=== PATIENT | female | born 1980 | race Two or more races ===

== ENCOUNTER 2017-12-05 15:27 | Inpatient (IN) ==
[2017-12-05] MEDS ORDERED: HYDROmorphone PF Inj 2 MG/ML Vial IV.PUSH ONE (16:13)
[2017-12-05] MEDS ORDERED: Sodium Chlor 0.9% Inj 500 ML IV.SIG ONE (16:14)
--- NOTE | 2017-12-05 16:17 | ED ---
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 This been present for 2 months secondary to kidney stones. Ostomy tube was placed at [facility] and she was seen here in the ER 2 weeks for the same type of symptoms. States she was DC'd and was to follow-up with urologist, Dr. Lema. Reports fever T-max 102, chills, nausea, abdominal pain, but denies vomiting, vaginal discharge, or diarrhea. Related Data Home Medications Medication Instructions Recorded Confirmed nitrofurantoin monohyd/m-cryst 100 mg PO Q12H 12/05/17 12/05/17 Allergies Allergy/AdvReac Type Severity Reaction Status Date / Time No Known Allergies Allergy Unverified 11/26/17 11:15 Review of Systems ROS: all other systems reviewed are negative [facility] Medical History Medical History Kidney stone (Acute) Surgical History Surgical History H/O breast augmentation (Acute) H/O nephrostomy (Acute) Hx of abdominoplasty (Acute) Previous section (Acute) Social History Social History Substance History: No History of Abuse Second Hand Smoke Exposure: No Smoking Status: Never smoker How Often Do You Have a Drink Containing Alcohol: Monthly or less Recent Travel in [facility] within the Last 8 Weeks: No Recent Out of Country Travel within the Last 8 Weeks: No Exam Narrative Exam Narrative: GENERAL: Discomfort secondary to pain. SKIN: Focused skin assessment warm/dry. HEAD: Atraumatic. Normocephalic. EYES: Pupils equal and round. No scleral icterus. No injection or drainage. ENT: No nasal bleeding or discharge. Mucous membranes pink and moist. NECK: Trachea midline. No JVD. CARDIOVASCULAR: Regular rate and rhythm. No murmur appreciated. RESPIRATORY: No accessory muscle use. Clear to auscultation. Breath sounds equal bilaterally. GASTROINTESTINAL: Abdomen soft, non-tender, nondistended. Hepatic and splenic margins not palpable. L nephrostomy tube, no pus/erythema at insertion site MUSCULOSKELETAL: No obvious deformities. No clubbing. No cyanosis. No edema. NEUROLOGICAL: Awake and alert. No obvious cranial nerve deficits. Motor grossly within normal limits. Normal speech. PSYCHIATRIC: Appropriate mood and affect; insight and judgment normal. Course Initial Documented Vital Signs Temperature 98.8 F 12/05/17 15:35 Pulse Rate 136 H 12/05/17 15:35 Respiratory Rate 20 12/05/17 15:35 Blood Pressure 176/101 H 12/05/17 15:35 Pulse Oximetry 100 12/05/17 15:35 Last Documented Vital Signs Temperature 100.6 F H 12/05/17 19:11 Pulse Rate 120 H 12/05/17 18:31 Respiratory Rate 17 12/05/17 18:31 Blood Pressure 152/91 H 12/05/17 18:31 Pulse Oximetry 100 12/05/17 18:31 Critical Care Time Critical Care Time: Yes Total Critical Care Time: 35 Attestation: Aggregate critical care time was 35 minutes. Time to perform other separately billable procedures was not included in the critical care time. My time did not include minutes spent treating any other patients simultaneously or on activities that did not directly contribute to the patient's treatment. The services I provided to this patient were to treat and/or prevent clinically significant deterioration that could result in: , increased morbidity,renal failure I provided critical care services requiring my management, as noted below: Chart data review, documentation time, medication orders and management, vital sign assessments/reviewing monitor data, ordering and reviewing lab tests, ordering and interpreting/reviewing x-rays and diagnostic studies, care of the patient and discussion of the patient with the admitting physicians. Medical Decision Making MDM Narrative Medical decision making narrative: Patient presents to the emergency department complaining of nephrostomy tube not draining. Patient placed on classroom monitor , continuous pulse ox, IV access obtained. Labs, CT scan abdomen and pelvis, 500 cc IV normal saline, 1 mg IV Dilaudid ordered. nurse flushed nephrostomy tube without difficulty in ER. U/A sent on specimen patient gave in ER. Urine cx results 11/29/17 + E coli ESBL. Will give 1gram IV meropenem. 1800: Dr Weir, Urology: Consult ID for abx coverage, tube in good place nothing to do from that standpoint, f/u with Scaglia, air normal finding with nephrostomy tube CONCLUSION:1. The left nephrostomy tube is in good position. The left renal stone has fallen from the UPJ back into the kidney. No obstructionobserved. There is perinephric stranding and edema involving the left kidney suggesting pyelonephritis.2. Tiny focus of intraluminal air involving the urinary bladder. This can be seen in recent instrumentation but can also be seen in cystitis with gas producing organisms. Labs: elevated wbc count, lactate, UA-> + UTI Patient admitted. Temp increased to 100.6, written for 650mg po tylenol and another liter IV NS. ECG pending at time of admit. Admit MD, Dr Flowers, aware and will followup. Differential Diagnosis Differential Diagnosis: Pyelonephritis, UTI, obstructing kidney stone, renal failure Lab Data Result diagrams: 12/05/17 16:55 12/05/17 16:55 Lab Results 12/05/17 12/05/17 12/05/17 Range/Units 16:55 16:55 16:55 WBC 14.7 H (4.0-11.0) th/mm3 RBC 4.32 (4.00-5.30) mil/mm3 Hgb 12.2 (11.6-15.3) gm/dL Hct 35.6 (35.0-46.0) % MCV 82.3 (80.0-100.0) fL MCH 28.3 (27.0-34.0) pg MCHC 34.3 (32.0-36.0) % RDW 14.6 (11.6-17.2) % Plt Count 417 (150-450) th/mm3 MPV 7.3 (7.0-11.0) fL Neut % (Auto) 84.3 H (16.0-70.0) % Lymph % (Auto) 9.7 (9.0-44.0) % [place] % (Auto) 5.2 (0.0-8.0) % Eos % (Auto) 0.5 (0.0-4.0) % Baso % (Auto) 0.3 (0.0-2.0) % Neut # (Auto) 12.4 H (1.8-7.7) th/mm3 Lymph # (Auto) 1.4 (1.0-4.8) th/mm3 [place] # (Auto) 0.8 (0.0-0.9) th/mm3 Eos # (Auto) 0.1 (0.0-0.4) th/mm3 Baso # (Auto) 0.0 (0.0-0.2) th/mm3 WBC Differential . Differential Comment Auto diff final Sodium 136 (136-145) meq/L Potassium 3.9 (3.5-5.1) meq/L Chloride 102 (98-107) meq/L Carbon Dioxide 26.5 (21.0-32.0) meq/L Anion Gap 8 (5-15) meq/L BUN 12 (7-18) mg/dL Creatinine 0.97 (0.50-1.00) mg/dL Estimated GFR 65 L (>89) mL/min Random Glucose 94 (74-106) mg/dL Lactic Acid 2.2 H (0.4-2.0) mmol/L Calcium 8.7 (8.5-10.1) mg/dL Total Bilirubin 0.4 (0.2-1.0) mg/dL AST 26 (15-37) U/L ALT 35 (10-53) U/L Alkaline Phosphatase 87 (45-117) U/L Total Protein 7.9 (6.4-8.2) g/dL Albumin 3.6 (3.4-5.0) g/dL Urine Color (Yellw/Straw) Urine Clarity (Clear) Urine pH (5.0-8.5) Ur Specific [place] (1.002-1.035) Urine Protein (Neg-Trace) mg/dL Urine Glucose (UA) (Negative) mg/dL Urine Ketones (Negative) mg/dL Urine Occult Blood (Negative) Urine Nitrate (Negative) Urine Bilirubin (Negative) Urine Urobilinogen (Less than 2) mg/dL Ur Leukocyte Esterase (Negative) Urine RBC (0-3) /hpf Urine WBC (0-5) /hpf Urine WBC Clumps (None) Urine Bacteria (None) /hpf Hyaline Casts (0-3) /lpf Urine Mucus (Occasional) /lpf Micro UA Comment Urine Culture Comments 12/05/17 Range/Units 17:01 WBC (4.0-11.0) th/mm3 RBC (4.00-5.30) mil/mm3 Hgb (11.6-15.3) gm/dL Hct (35.0-46.0) % MCV (80.0-100.0) fL MCH (27.0-34.0) pg MCHC (32.0-36.0) % RDW (11.6-17.2) % Plt Count (150-450) th/mm3 MPV (7.0-11.0) fL Neut % (Auto) (16.0-70.0) % Lymph % (Auto) (9.0-44.0) % [place] % (Auto) (0.0-8.0) % Eos % (Auto) (0.0-4.0) % Baso % (Auto) (0.0-2.0) % Neut # (Auto) (1.8-7.7) th/mm3 Lymph # (Auto) (1.0-4.8) th/mm3 [place] # (Auto) (0.0-0.9) th/mm3 Eos # (Auto) (0.0-0.4) th/mm3 Baso # (Auto) (0.0-0.2) th/mm3 WBC Differential Differential Comment Sodium (136-145) meq/L Potassium (3.5-5.1) meq/L Chloride (98-107) meq/L Carbon Dioxide (21.0-32.0) meq/L Anion Gap (5-15) meq/L BUN (7-18) mg/dL Creatinine (0.50-1.00) mg/dL Estimated GFR (>89) mL/min Random Glucose (74-106) mg/dL Lactic Acid (0.4-2.0) mmol/L Calcium (8.5-10.1) mg/dL Total Bilirubin (0.2-1.0) mg/dL AST (15-37) U/L ALT (10-53) U/L Alkaline Phosphatase (45-117) U/L Total Protein (6.4-8.2) g/dL Albumin (3.4-5.0) g/dL Urine Color Yellow (Yellw/Straw) Urine Clarity Cloudy H (Clear) Urine pH 6.0 (5.0-8.5) Ur Specific [place] 1.009 (1.002-1.035) Urine Protein 500 or greater (Neg-Trace) mg/dL Urine Glucose (UA) 50 (Negative) mg/dL Urine Ketones Negative (Negative) mg/dL Urine Occult Blood Moderate H (Negative) Urine Nitrate Positive H (Negative) Urine Bilirubin Negative (Negative) Urine Urobilinogen Less than 2 (Less than 2) mg/dL Ur Leukocyte Esterase Large H (Negative) Urine RBC 62 H (0-3) /hpf Urine WBC 122 H (0-5) /hpf Urine WBC Clumps Moderate H (None) Urine Bacteria Many H (None) /hpf Hyaline Casts 8 (0-3) /lpf Urine Mucus Few H (Occasional) /lpf Micro UA Comment Culture indicated Urine Culture Comments Culture indicated Imaging Data Radiologist's impression: Abdomen/Pelvis CT 12/05/17 16:14 CONCLUSION: 1. The left nephrostomy tube is in good position. The left renal stone has fallen from the UPJ back into the kidney. No obstruction observed. There is perinephric stranding and edema involving the left kidney suggesting pyelonephritis. 2. Tiny focus of intraluminal air involving the urinary bladder. This can be seen in recent instrumentation but can also be seen in cystitis with gas producing organisms. Discharge Plan Discharge Disposition Patient Disposition: 30 Still Patient Discharge Condition Condition: Stable Discharge Details Diagnosis: Sepsis, Pyelonephritis Physicians Team ED Provider: Rhona Kurtz Rxs /Orders / Referrals /Forms Prescriptions: No Action nitrofurantoin monohyd/m-cryst 100 mg Capsule 100 mg PO Q12H RF: 0 Status ED Status: With Doctor
[2017-12-05 17:23] LABS: Baso % (Auto) 0.3 % (0.0-2.0); Eos # (Auto) 0.1 th/mm3 (0.0-0.4); Eos % (Auto) 0.5 % (0.0-4.0); Hematocrit 35.6 % (35.0-46.0); Hemoglobin 12.2 gm/dL (11.6-15.3); Lymph # (Auto) 1.4 th/mm3 (1.0-4.8); Lymph % (Auto) 9.7 % (9.0-44.0); Mean Corpuscular HGB Conc 34.3 % (32.0-36.0); Mean Corpuscular Hemoglobin 28.3 pg (27.0-34.0); Mean Corpuscular Volume 82.3 fL (80.0-100.0); Mean Platelet Volume 7.3 fL (7.0-11.0); Mono # (Auto) 0.8 th/mm3 (0.0-0.9); Mono % (Auto) 5.2 % (0.0-8.0); Neut # (Auto) 12.4 th/mm3 (1.8-7.7); Neut % (Auto) 84.3 % (16.0-70.0); Platelet Count 417 th/mm3 (150-450); Red Blood Count 4.32 mil/mm3 (4.00-5.30); Red Cell Distribution Width 14.6 % (11.6-17.2); White Blood Count 14.7 th/mm3 (4.0-11.0)
[2017-12-05 17:35] LABS: Albumin 3.6 g/dL (3.4-5.0); Anion Gap 8 meq/L (5-15); Aspartate Aminotransferase 26 U/L (15-37); Blood Urea Nitrogen 12 mg/dL (7-18); Calcium 8.7 mg/dL (8.5-10.1); Carbon Dioxide 26.5 meq/L (21.0-32.0); Chloride 102 meq/L (98-107); Glomerular Filtration Rate 65 mL/min (>89); Glucose,Random 94 mg/dL (74-106); Potassium 3.9 meq/L (3.5-5.1); Sodium 136 meq/L (136-145)
[2017-12-05 17:36] LABS: Alanine Aminotransferase 35 U/L (10-53)
[2017-12-05 17:37] LABS: Bacteria,Urine Many /hpf; Bilirubin,Urine Negative (Negative); Clarity,Urine Cloudy (Clear); Color,Urine Yellow (Yellw/Straw); Glucose,Urine (UA) 50 mg/dL (Negative); Hyaline Casts,Urine 8 /lpf (0-3); Leukocyte Esterase,Urine Large (Negative); Mucus,Urine Few /lpf (Occasional); Nitrite,Urine Positive (Negative); Specific Gravity,Urine 1.009 (1.002-1.035)
[2017-12-05 17:38] LABS: Alkaline Phosphatase 87 U/L (45-117); Total Protein 7.9 g/dL (6.4-8.2)
--- NOTE | 2017-12-05 17:45 | CT ---
EXAM DATE: 12/05/2017 5:24 PM EDT AGE/SEX: 37 years / Female INDICATIONS: Left flank pain since last night recent nephrostomy tube CLINICAL DATA: This is the patient's initial encounter. Patient reports that signs and symptoms have been present for 1 day and indicates a pain score of 7/10. MEDICAL/SURGICAL HISTORY: Renal calculi. . nephrostomy tube RADIATION DOSE: 7.98 CTDI (mGy) COMPARISON: [facility] – [place], [place] ABDOMEN & PELVIS W/O CONTRAST, 11/26/2017. . TECHNIQUE: Multiple contiguous axial images were obtained through the abdomen. Images were obtained using multiple row detector helical technique. Using automated exposure control and adjustment of the mA and/or kV according to patient size, radiation dose was kept as low as reasonably achievable to o btain optimal diagnostic quality images. DICOM format image data is available electronically for rev iew and comparison. FINDINGS: Lower Lungs: The visualized lower lungs are clear. Liver: The liver has a homogeneous density without space-occupying lesion. There is no dilation of th e biliary tree. Spleen: Homogeneous density without enlargement. Pancreas: Unremarkable without mass or calcification. Kidneys: The left nephrostomy tube is in good position. The 11 mm stone previously seen at the UPJ h as fallen back into the renal pelvis. There is no hydronephrosis or hydroureter. There is stranding s urrounding the left kidney. No perinephric fluid collections. The left kidney is edematous. The right kidney is unremarkable. No right renal stones or right perinephric stranding.. Adrenal Glands: Unremarkable. Aorta: The aorta and proximal iliac vessels are grossly unremarkable without aneurysmal dilation. Bowel/Mesentery: The bowel loops are grossly unremarkable. The cecum and sigmoid colon have a normal configuration. Abdominal Wall: Intact. Retroperitoneum: No evidence of adenopathy in the retrocrural, para-aortic, or deep pelvic regions. Bladder: A tiny bubble of air is seen intraluminally. No wall thickening. Contours are smooth. Reproductive Organs: No abnormal masses or calcifications seen. Inguinal: The inguinal region is unremarkable without evidence of adenopathy. Bony Structures: Unremarkable. CONCLUSION: 1. The left nephrostomy tube is in good position. The left renal stone has fallen from the UPJ back into the kidney. No obstruction observed. There is perinephric stranding and edema involving the left kidney suggesting pyelonephritis. 2. Tiny focus of intraluminal air involving the urinary bladder. This can be seen in recent instrume ntation but can also be seen in cystitis with gas producing organisms. Electronically signed by: Ponce Bliss MD 12/05/2017 5:44 PM EDT
[2017-12-05] MEDS ORDERED: Temazepam 15 MG Capsule PO PRN (19:07)
[2017-12-05] MEDS ORDERED: Bisacodyl 10 MG Supp RECTAL PRN (19:07)
[2017-12-05] MEDS ORDERED: Acetaminophen 325 MG Tablet PO PRN (19:07)
[2017-12-05] MEDS ORDERED: Sod Chloride 0.9% Inj 1,000 ML IV.SIG ONE (19:08)
[2017-12-05] MEDS ORDERED: Acetaminophen 325 MG Tablet PO ONE (19:08)
--- NOTE | 2017-12-05 19:27 | P.HPIM ---
History of Present Illness Primary Care Physician: Austin Escobar History of Present Illness: This is a 37-year-old female with a PMH of Renal Stone s/p Left Nephrostomy Tube who presented to the ER w/ complaints of left flank pain in addition to fever of 102. Reports flank pain is severe, 10/10, worse w/ leg straightening, no alleviating factors. +nausea, but no vomiting. Has h/o Left Nephrostomy Tube placement at [facility] 2 mo ago, was seen here in the ER on for c/o flank pain, U/a w/ +UTI, d/c'd on Keflex 500mg po q8h and referred to Urology. Previously on Cipro. On arrival, BP 141/80, HR 123, O2 sat 100% on RA, Temp 100.6. WBC 14.7. Chemistry unremarkable. Lactic Acid 2.2. UA positive for UTI. Urine Culture from 11/26/2017 reviewed, ESBL positive. CT Abdomen/Pelvis w/ left nephrostomy in good position, left renal stone has fallen from UPJ into the kidney, no obstruction, perinephric stranding and edema suggesting pyelonephritis, tiny focus of intraluminal air in the urinary bladder. Dr. Weir consulted, recommended eval by Dr. Lema in am. - Diagnosis (1) Intractable pain (2) Sepsis (3) Pyelonephritis Review of Systems PAST FAMILY HISTORY: Reviewed. No h/o DM or CAD All other systems reviewed negative except as stated in HPI PMFSH - History History Provided By: Patient - Medical History Medical History: Medical History (Last Updated 11/26/17 @ 11:28 by Elif Boykin) Kidney stone - Surgical History Surgical History: Surgical History (Last Updated 11/26/17 @ 11:19 by Elif Boykin) H/O breast augmentation H/O nephrostomy Hx of abdominoplasty Previous section - Family History Family History: Family History (Last Updated 12/05/17 @ 19:36 by Krystal Flowers MD) Other Family history normal - Tobacco History Second Hand Smoke Exposure: No Smoking Status: Never smoker - Alcohol History How Often Do You Have a Drink Containing Alcohol: Monthly or less - Substance Use History Substance History: No History of Abuse - Travel History Recent Travel in the [facility] Within the Last 8 Weeks: No Recent Travel Out of the Country Within the Last 8 Weeks: No - Immunization History Tetanus Immunization: <5 Years Hx Influenza Vaccine This Season: Yes Medications and Allergies Active Medications: Active Medications Acetaminophen (Tylenol) 650 mg PO Q4H PRN PRN Reason: Temp > 100.4 Hydrocodone Bitart/Acetaminophen ([place] 5/325) 1 tab PO Q4H PRN PRN Reason: PAIN 3-5 Al Hydroxide/Mg Hydroxide (Milk Of Magnesia Liq) 30 ml PO Q12H PRN PRN Reason: Mild Constipation Bisacodyl (Dulcolax Supp) 10 mg RECTAL DAILY PRN PRN Reason: SEVERE CONSITIPATION Hydromorphone HCl (Dilaudid Pf Inj) 1 mg IV.PUSH Q4H PRN PRN Reason: PAIN 6-10 Sodium Chloride (Ns Inj) 1,000 mls @ 100 mls/hr IV.CONT .Q10H PRAFUL Lactulose (Lactulose Liq) 30 ml PO DAILY PRN PRN Reason: SEVERE CONSITIPATION Ondansetron HCl (Zofran Inj) 4 mg IV.PUSH Q6H PRN PRN Reason: NAUSEA OR VOMITING Senna/Docusate Sodium (Polina-Colace) 1 tab PO BID PRAFUL Sennosides (Senokot) 17.2 mg PO Q12H PRN PRN Reason: Moderate Constipation Temazepam (Restoril) 15 mg PO HS PRN PRN Reason: INSOMNIA Allergies Allergy/AdvReac Type Severity Reaction Status Date / Time No Known Allergies Allergy Unverified 11/26/17 11:15 Home Medications Medication Instructions Recorded Confirmed Type nitrofurantoin monohyd/m-cryst 100 mg PO Q12H 12/05/17 12/05/17 History Exam Vital signs: Vital Signs 12/05/17 15:35 12/05/17 16:25 12/05/17 17:45 Temperature 98.8 F 99.2 F Pulse Rate 136 H 123 H Respiratory Rate 20 12 19 Blood Pressure 176/101 H 141/80 H Pulse Oximetry 100 100 12/05/17 18:31 12/05/17 19:11 Temperature 100.6 F H Pulse Rate 120 H Respiratory Rate 17 Blood Pressure 152/91 H Pulse Oximetry 100 Intake & Output 12/05/17 12/05/17 12/06/17 06:59 18:59 06:59 Intake Total 600 / 600 Balance 600 / 600 Weight 71.214 kg Intake: IV 600 / 600 Merrem Inj 1,000 MG In NS Inj 100 / 100 100 ML @ 200 mls/hr IV.SIG ONCE ONE Rx#:[id number] NS Inj 500 ML @ Wide Open IV. 500 / 500 SIG BOLUS ONE Rx#:[id number] Narrative: PE: GENERAL: Pleasant young in no acute distress, but appears unwell, shivering. HEENT: PERRLA, EOMI. No scleral icterus or conjunctival pallor. No lid lag or facial droop. CARDIOVASCULAR: Regular rate and rhythm. No obvious murmurs to auscultation. No chest tenderness to palpation. RESPIRATORY: No obvious rhonchi or wheezing. Clear to auscultation. Breath sounds equal bilaterally. GASTROINTESTINAL: Abdomen soft, non-tender, nondistended. BS normal. Left nephrostomy in place, clear urine. +left flank tenderness MUSCULOSKELETAL: Extremities without clubbing, cyanosis, or edema. No obvious deformities. NEUROLOGICAL: Awake, alert and oriented x4. No focal neurologic deficits. Moving both upper and lower extremities spontaneously. Results - Labs CBC & Chem 7: 12/05/17 16:55 12/05/17 16:55 Labs: Short CBC 12/05/17 Range/Units 16:55 WBC 14.7 H (4.0-11.0) th/mm3 Hgb 12.2 (11.6-15.3) gm/dL Hct 35.6 (35.0-46.0) % Plt Count 417 (150-450) th/mm3 BMP 12/05/17 16:55 Sodium 136 Potassium 3.9 Chloride 102 Carbon Dioxide 26.5 BUN 12 Creatinine 0.97 Calcium 8.7 Liver Function 12/05/17 Range/Units 16:55 Total Bilirubin 0.4 (0.2-1.0) mg/dL AST 26 (15-37) U/L ALT 35 (10-53) U/L Alkaline Phosphatase 87 (45-117) U/L Albumin 3.6 (3.4-5.0) g/dL Urine 12/05/17 Range/Units 17:01 Urine Color Yellow (Yellw/Straw) Urine Clarity Cloudy H (Clear) Urine pH 6.0 (5.0-8.5) Ur Specific [place] 1.009 (1.002-1.035) Urine Protein 500 or greater (Neg-Trace) mg/dL Urine Glucose (UA) 50 (Negative) mg/dL - Imaging Impressions Abdomen/Pelvis CT 12/05/17 16:14 CONCLUSION: 1. The left nephrostomy tube is in good position. The left renal stone has fallen from the UPJ back into the kidney. No obstruction observed. There is perinephric stranding and edema involving the left kidney suggesting pyelonephritis. 2. Tiny focus of intraluminal air involving the urinary bladder. This can be seen in recent instrumentation but can also be seen in cystitis with gas producing organisms. Caprini VTE Risk Assessment Caprini VTE Risk Assessment: No/Low Risk (score <= 1) Caprini Risk Assessment Model: Point Value = 1 Point Value = 2 Point Value = 3 Point Value = 5 Age 41-60 Minor surgery BMI > 25 kg/m2 Swollen legs Varicose veins or History of unexplained or recurrent spontaneous Oral contraceptives or hormone replacement Sepsis (< 1 month) Serious lung disease, including pneumonia (< 1 month) Abnormal pulmonary function Acute myocardial infarction Congestive heart failure (< 1 month) History of inflammatory bowel disease Medical patient at bed rest Age 61-74 Arthroscopic surgery Major open surgery (> 45 min) Laparoscopic surgery (> 45 min) Malignancy Confined to bed (> 72 hours) Immobilizing plaster cast Central venous access Age >= 75 History of VTE Family history of VTE Factor V Leiden Prothrombin 20804O Lupus anticoagulant Anticardiolipin antibodies Elevated serum homocysteine Heparin-induced thrombocytopenia Other congenital or acquired thrombophilia Stroke (< 1 month) Elective arthroplasty Hip, pelvis, or leg fracture Acute spinal cord injury (< 1 month) Prophylaxis Regimen: Total Risk Factor Score Risk Level Prophylaxis Regimen 0-1 Low Early ambulation 2 Moderate Order ONE of the following: *Sequential Compression Device (SCD) *Heparin 5000 units SQ BID 3-4 Higher Order ONE of the following medications: *Heparin 5000 units SQ TID *Enoxaparin/Lovenox 40 mg SQ daily (WT < 150 kg, CrCl > 30 mL/min) *Enoxaparin/Lovenox 30 mg SQ daily (WT < 150 kg, CrCl > 10-29 mL/min) *Enoxaparin/Lovenox 30 mg SQ BID (WT < 150 kg, CrCl > 30 mL/min) AND/OR *Sequential Compression Device (SCD) 5 or more Highest Order ONE of the following medications: *Heparin 5000 units SQ TID (Preferred with Epidurals) *Enoxaparin/Lovenox 40 mg SQ daily (WT < 150 kg, CrCl > 30 mL/min) *Enoxaparin/Lovenox 30 mg SQ daily (WT < 150 kg, CrCl > 10-29 mL/min) *Enoxaparin/Lovenox 30 mg SQ BID (WT < 150 kg, CrCl > 30 mL/min) AND *Sequential Compression Device (SCD) Assessment and Plan - Assessment (1) Intractable pain Code(s): R52 - Pain, unspecified Status: Acute (2) Sepsis Code(s): A41.9 - Sepsis, unspecified organism Status: Acute (3) Pyelonephritis Code(s): N12 - Tubulo-interstitial nephritis, not specified as acute or chronic Status: Acute - Plan A/P: 1. Sepsis: Temp 100.2, HR 123, WBC 14, Source-UTI/Pyelonephritis, Follow up cultures, continue IV Abx, IVF for hydration, repeat labs in am. 2. Pyelonephritis/UTI: U/a from 11/26/17 +UTI, cultures reviewed, ESBL+, will start on Ertapenem 1gm IV qd, consult ID for recommendations on antibiotic regimen, IVF for hydration, monitor I/O. 3. Intractable Pain: +left flank pain, h/o Left Nephrostomy, CT Abd/Pelvis w/ left nephrostomy in good position, left renal stone fallen from UPJ into kidney , +perinephric stranding, +intraluminal air, images reviewed. Dr. Weir consulted, intraluminal air from recent intervention, recommendation for consult w/ Dr. Lema. Analgesics/antiemetics as needed. 4. DVT Prophylaxis: SCD/Teds 5. Social work for d/c planning as needed 6. Case discussed w/ ER physician at length, labs/records/imaging reviewed by me. (2) Sepsis Qualifiers: Sepsis type: sepsis due to unspecified organism Qualified Code(s): A41.9 - Sepsis, unspecified organism
[2017-12-05] MEDS: HYDROmorphone PF Inj 2 MG/ML Vial IV.PUSH PRN ×2 (19:51→23:56)
[2017-12-05] MEDS: Sod Chloride 0.9% Inj 1,000 ML IV.CONT SCH (20:53)
[2017-12-05] MEDS: Senna/Docusate Sodium 8.6/50 MG Tablet PO SCH (22:04)
[2017-12-06] MEDS: HYDROmorphone PF Inj 2 MG/ML Vial IV.PUSH PRN ×2 (04:34→09:12)
[2017-12-06] MEDS: Sod Chloride 0.9% Inj 1,000 ML IV.CONT SCH ×3 (05:44→17:28)
[2017-12-06 06:22] LABS: Baso % (Auto) 0.3 % (0.0-2.0); Eos # (Auto) 0.2 th/mm3 (0.0-0.4); Eos % (Auto) 1.4 % (0.0-4.0); Hematocrit 32.1 % (35.0-46.0); Hemoglobin 10.6 gm/dL (11.6-15.3); Lymph # (Auto) 1.6 th/mm3 (1.0-4.8); Lymph % (Auto) 11.2 % (9.0-44.0); Mean Corpuscular HGB Conc 33.1 % (32.0-36.0); Mean Corpuscular Hemoglobin 27.3 pg (27.0-34.0); Mean Corpuscular Volume 82.5 fL (80.0-100.0); Mean Platelet Volume 7.4 fL (7.0-11.0); Mono % (Auto) 6.9 % (0.0-8.0); Neut # (Auto) 11.3 th/mm3 (1.8-7.7); Neut % (Auto) 80.2 % (16.0-70.0); Platelet Count 373 th/mm3 (150-450); Red Cell Distribution Width 14.6 % (11.6-17.2); White Blood Count 14.1 th/mm3 (4.0-11.0)
[2017-12-06 06:39] LABS: Albumin 2.9 g/dL (3.4-5.0); Anion Gap 10 meq/L (5-15); Aspartate Aminotransferase 15 U/L (15-37); Blood Urea Nitrogen 9 mg/dL (7-18); Calcium 7.8 mg/dL (8.5-10.1); Carbon Dioxide 23.8 meq/L (21.0-32.0); Chloride 104 meq/L (98-107); Glomerular Filtration Rate 69 mL/min (>89); Glucose,Random 100 mg/dL (74-106); Potassium 3.3 meq/L (3.5-5.1); Sodium 138 meq/L (136-145)
[2017-12-06 07:11] LABS: Alanine Aminotransferase 25 U/L (10-53); Alkaline Phosphatase 78 U/L (45-117); Total Protein 6.7 g/dL (6.4-8.2)
--- NOTE | 2017-12-06 07:58 | ECG ---
Date Performed: 12/05/2017 Time Performed: 19:31:16 PTAGE: 37 years EKG: SINUS TACHYCARDIA POSSIBLE ANTERIOR MYOCARDIAL INFARCTION ABNORMAL ECG NO PREVIOUS TRACING DOCTOR: Andrés Hwang Interpretating Date/Time 12/06/2017 07:57:03
[2017-12-06] MEDS: Senna/Docusate Sodium 8.6/50 MG Tablet PO SCH ×2 (09:12→21:24)
--- NOTE | 2017-12-06 09:47 | P.CONURO ---
History of Present Illness Service: Urology Consult date: 12/06/17 Reason for Consult: Left Kidney Stone Primary Care Provider: Austin Escobar Chief Complaint: Left Flank pain History of Present Illness: 37 yo female h/o left UPJ stone with urosepsis secondary to ESBL + UTI s/p Left Nephrostomy Tube insertion x 2 months presented to [place] [facility] last night with left flank pain, fevers, and general malaise for almost 1 week. She also c/o non -draining nephrostomy tube. CT Stone Protocol showed left nephrostomy tube in good position and left renal stone had migrated back into kidney. She was noted to have a low grade fever, slightly elevated WBC and a UTI. She was admitted for antibiotics and Urology was consulted. She continues to have left flank pain , dysuria and weakness this morning. She denies prior h/o kidney stones. She is scheduled to see Dr. Lema for treatment of her stone. Review of Systems All other systems reviewed negative except as stated in HPI Constitutional: Reports lack of energy, Reports malaise Gastrointestinal: Reports abdominal pain PMFSH - History History Provided By: Patient - Medical History Medical History: Medical History (Last Reviewed 12/06/17 @ 09:41 by Kareem Weir MD) Kidney stone - Surgical History Surgical History: Surgical History (Last Reviewed 12/06/17 @ 09:41 by Kareem Weir MD) H/O breast augmentation H/O nephrostomy Hx of abdominoplasty Previous section - Family History Family History: Family History (Last Reviewed 12/06/17 @ 09:41 by Kareem Weir MD) Other Family history normal - Tobacco History Second Hand Smoke Exposure: No Tobacco Use In Past 30 Days: No Smoking Status: Never smoker - Alcohol History How Often Do You Have a Drink Containing Alcohol: Monthly or less - Substance Use History Substance History: No History of Abuse - Travel History History of Recent Travel: No Recent Travel in the [place] Within the Last 8 Weeks: No Recent Travel Out of the Country Within the Last 8 Weeks: No - Immunization History Tetanus Immunization: Unsure Hx Influenza Vaccine This Season: No Medications and Allergies Active Medications: Active Medications Acetaminophen (Tylenol) 650 mg PO Q4H PRN PRN Reason: Temp > 100.4 Hydrocodone Bitart/Acetaminophen ([place] 5/325) 1 tab PO Q4H PRN PRN Reason: PAIN 3-5 Al Hydroxide/Mg Hydroxide (Milk Of Magnesia Liq) 30 ml PO Q12H PRN PRN Reason: Mild Constipation Bisacodyl (Dulcolax Supp) 10 mg RECTAL DAILY PRN PRN Reason: SEVERE CONSITIPATION Hydromorphone HCl (Dilaudid Pf Inj) 1 mg IV.PUSH Q4H PRN PRN Reason: PAIN 6-10 Last Admin: 12/06/17 09:12 Dose: 1 mg Sodium Chloride (Ns Inj) 1,000 mls @ 100 mls/hr IV.CONT .Q10H [facility] Last Admin: 12/06/17 09:14 Dose: 100 mls/hr Ertapenem 1,000 mg/ Sodium (Chloride) 100 mls @ 200 mls/hr IV.SIG Q24H [facility] Last Infusion: 12/06/17 04:38 Dose: Infused Lactulose (Lactulose Liq) 30 ml PO DAILY PRN PRN Reason: SEVERE CONSITIPATION Ondansetron HCl (Zofran Inj) 4 mg IV.PUSH Q6H PRN PRN Reason: NAUSEA OR VOMITING Senna/Docusate Sodium (Polina-Colace) 1 tab PO BID [facility] Last Admin: 12/06/17 09:12 Dose: 1 tab Sennosides (Senokot) 17.2 mg PO Q12H PRN PRN Reason: Moderate Constipation Temazepam (Restoril) 15 mg PO HS PRN PRN Reason: INSOMNIA Allergies Allergy/AdvReac Type Severity Reaction Status Date / Time No Known Allergies Allergy Unverified 11/26/17 11:15 Home Medications Medication Instructions Recorded Confirmed Type nitrofurantoin monohyd/m-cryst 100 mg PO Q12H 12/05/17 12/05/17 History Physical Exam Vital Signs - 24 hr 12/05/17 15:35 12/05/17 16:25 12/05/17 17:45 Temperature 98.8 F 99.2 F Pulse Rate 136 H 123 H Respiratory Rate 20 12 19 Blood Pressure 176/101 H 141/80 H Pulse Oximetry 100 100 12/05/17 18:31 12/05/17 19:11 12/05/17 20:00 Temperature 100.6 F H 100 F H Pulse Rate 120 H 119 H Respiratory Rate 17 20 Blood Pressure 152/91 H 123/80 Pulse Oximetry 100 100 12/05/17 20:52 12/05/17 21:10 12/06/17 00:00 Temperature 100 F H 98.6 F Pulse Rate 114 H 108 H Respiratory Rate 19 22 20 Blood Pressure 135/71 102/59 L Pulse Oximetry 99 99 12/06/17 01:55 12/06/17 04:00 12/06/17 08:00 Temperature 98.1 F 98.3 F Pulse Rate 98 H 95 H Respiratory Rate 18 20 20 Blood Pressure 130/67 109/66 Pulse Oximetry 100 100 Physical Exam: GENERAL: This is a well-nourished, well-developed patient, in no apparent distress. SKIN: No rashes, ecchymoses or lesions. Cool and dry. HEAD: Atraumatic. Normocephalic. No temporal or scalp tenderness. EYES: Pupils equal round and reactive. Extraocular motions intact. No scleral icterus. No injection or drainage. ENT: Nose without bleeding, purulent drainage or septal hematoma. Throat without erythema, tonsillar hypertrophy or exudate. Uvula midline. Airway patent. NECK: Trachea midline. No JVD or lymphadenopathy. Supple, nontender, no meningeal signs. CARDIOVASCULAR: Regular rate and rhythm without murmurs, gallops, or rubs. RESPIRATORY: Clear to auscultation. Breath sounds equal bilaterally. No wheezes , rales, or rhonchi. GASTROINTESTINAL: Abdomen soft, non-tender, nondistended. No hepato-splenomegaly , or palpable masses. No guarding. GENITOURINARY: mild left CVA tenderness. Left Nephrostomy tube draining clear, yellow urine MUSCULOSKELETAL: Extremities without clubbing, cyanosis, or edema. No joint tenderness, effusion, or edema noted. No calf tenderness. Negative Homans sign bilaterally. NEUROLOGICAL: Awake and alert. Cranial nerves II through XII intact. Motor and sensory grossly within normal limits. Five out of 5 muscle strength in all muscle groups. Normal speech. Lab results reviewed: Yes Laboratory Results - last 24 hr 12/05/17 12/05/17 12/05/17 16:55 16:55 16:55 WBC 14.7 H RBC 4.32 Hgb 12.2 Hct 35.6 MCV 82.3 MCH 28.3 MCHC 34.3 RDW 14.6 Plt Count 417 MPV 7.3 Neut % (Auto) 84.3 H Lymph % (Auto) 9.7 [place] % (Auto) 5.2 Eos % (Auto) 0.5 Baso % (Auto) 0.3 Neut # (Auto) 12.4 H Lymph # (Auto) 1.4 [place] # (Auto) 0.8 Eos # (Auto) 0.1 Baso # (Auto) 0.0 WBC Differential . Differential Comment Auto diff final Sodium 136 Potassium 3.9 Chloride 102 Carbon Dioxide 26.5 Anion Gap 8 BUN 12 Creatinine 0.97 Estimated GFR 65 L Random Glucose 94 Lactic Acid 2.2 H Calcium 8.7 Total Bilirubin 0.4 AST 26 ALT 35 Alkaline Phosphatase 87 Total Protein 7.9 Albumin 3.6 Urine Color Urine Clarity Urine pH Ur Specific [place] Urine Protein Urine Glucose (UA) Urine Ketones Urine Occult Blood Urine Nitrate Urine Bilirubin Urine Urobilinogen Ur Leukocyte Esterase Urine RBC Urine WBC Urine WBC Clumps Urine Bacteria Hyaline Casts Urine Mucus Micro UA Comment Urine Culture Comments 12/05/17 12/06/17 12/06/17 17:01 05:11 05:11 WBC 14.1 H RBC 3.90 L Hgb 10.6 L Hct 32.1 L MCV 82.5 MCH 27.3 MCHC 33.1 RDW 14.6 Plt Count 373 MPV 7.4 Neut % (Auto) 80.2 H Lymph % (Auto) 11.2 [place] % (Auto) 6.9 Eos % (Auto) 1.4 Baso % (Auto) 0.3 Neut # (Auto) 11.3 H Lymph # (Auto) 1.6 [place] # (Auto) 1.0 H Eos # (Auto) 0.2 Baso # (Auto) 0.0 WBC Differential . Differential Comment Auto diff final Sodium 138 Potassium 3.3 L Chloride 104 Carbon Dioxide 23.8 Anion Gap 10 BUN 9 Creatinine 0.92 Estimated GFR 69 L Random Glucose 100 Lactic Acid Calcium 7.8 L D Total Bilirubin 0.5 AST 15 ALT 25 Alkaline Phosphatase 78 Total Protein 6.7 D Albumin 2.9 L D Urine Color Yellow Urine Clarity Cloudy H Urine pH 6.0 Ur Specific [place] 1.009 Urine Protein 500 or greater Urine Glucose (UA) 50 Urine Ketones Negative Urine Occult Blood Moderate H Urine Nitrate Positive H Urine Bilirubin Negative Urine Urobilinogen Less than 2 Ur Leukocyte Esterase Large H Urine RBC 62 H Urine WBC 122 H Urine WBC Clumps Moderate H Urine Bacteria Many H Hyaline Casts 8 Urine Mucus Few H Micro UA Comment Culture indicated Urine Culture Comments Culture indicated Result Diagrams: 12/06/17 05:11 12/06/17 05:11 Personally reviewed images: Yes Imaging: ITS Impressions Abdomen/Pelvis CT 12/05/17 16:14 CONCLUSION: 1. The left nephrostomy tube is in good position. The left renal stone has fallen from the UPJ back into the kidney. No obstruction observed. There is perinephric stranding and edema involving the left kidney suggesting pyelonephritis. 2. Tiny focus of intraluminal air involving the urinary bladder. This can be seen in recent instrumentation but can also be seen in cystitis with gas producing organisms. Radiology images reviewed and interpreted by myself. Left Nephrostomy tube in good position. Stone within lower pole, no hydronephrosis seen. Assessment and Plan - Assessment (1) Kidney stone on left side Code(s): N20.0 - Calculus of kidney Status: Chronic (2) Pyelonephritis Code(s): N12 - Tubulo-interstitial nephritis, not specified as acute or chronic Status: Acute - Plan 37 yo female with left kidney stone s/p left nephrostomy tube, left pyelonephritis, left flank pain -Continue Antibiotics, pending cultures. Agree with ID consult for ESBL + UTI -Nephrostomy tube draining well. No intervention needed at this time. -Her stone is likely infected, which is source of her recurrent UTIs. After she is adequately treated for UTI, will need stone treated by Dr. Lema, her Urologist -Monitor WBC
--- NOTE | 2017-12-06 12:28 | P.PN ---
Subjective Interval history: Follow-up sepsis /pyelonephritis /status post left nephrostomy tube placement December 06, 2017-patient seen and examined, currently afebrile. Complaint of left flank pain. No nausea or vomiting with p.o. intake. Patient was seen this morning by urology. Physical Exam Vital signs: Vital Signs 12/05/17 15:35 12/05/17 16:25 12/05/17 17:45 Temperature 98.8 F 99.2 F Pulse Rate 136 H 123 H Respiratory Rate 20 12 19 Blood Pressure 176/101 H 141/80 H Pulse Oximetry 100 100 12/05/17 18:31 12/05/17 19:11 12/05/17 20:00 Temperature 100.6 F H 100 F H Pulse Rate 120 H 119 H Respiratory Rate 17 20 Blood Pressure 152/91 H 123/80 Pulse Oximetry 100 100 12/05/17 20:52 12/05/17 21:10 12/06/17 00:00 Temperature 100 F H 98.6 F Pulse Rate 114 H 108 H Respiratory Rate 19 22 20 Blood Pressure 135/71 102/59 L Pulse Oximetry 99 99 12/06/17 01:55 12/06/17 04:00 12/06/17 08:00 Temperature 98.1 F 98.3 F Pulse Rate 98 H 95 H Respiratory Rate 18 20 20 Blood Pressure 130/67 109/66 Pulse Oximetry 100 100 Intake & Output 12/05/17 12/06/17 12/06/17 18:59 06:59 18:59 Intake Total 600 / 600 2420 / 2420 1000 / 1000 Balance 600 / 600 2420 / 2420 1000 / 1000 Weight 71.214 kg 71.2 kg Intake: IV 600 / 600 2100 / 2100 1000 / 1000 NS Inj 1,000 ML @ 100 mls/hr IV 1000 / 1000 1000 / 1000 .CONT .Q10H [facility] Rx#:[id number] INVanz Inj 1,000 MG In NS Inj 100 / 100 100 ML @ 200 mls/hr IV.SIG Q24H [facility] Rx#:[id number] Merrem Inj 1,000 MG In NS Inj 100 / 100 100 ML @ 200 mls/hr IV.SIG ONCE ONE Rx#:[id number] NS Inj 1,000 ML @ Wide Open IV. 1000 / 1000 SIG BOLUS ONE Rx#:[id number] NS Inj 500 ML @ Wide Open IV. 500 / 500 SIG BOLUS ONE Rx#:[id number] Oral 320 / 320 Other: # Voids 1 Date of Last Bowel Movement 12/05/17 12/05/17 Weight On Admission 71.2 kg Narrative: GENERAL: NAD SKIN: Warm and dry. HEAD: Normocephalic. EYES: No scleral icterus. No injection or drainage. NECK: Supple, trachea midline. No JVD or lymphadenopathy. CARDIOVASCULAR: Regular rate and rhythm without murmurs, gallops, or rubs. RESPIRATORY: Breath sounds equal bilaterally. No accessory muscle use. GASTROINTESTINAL: Abdomen soft, non-tender, nondistended. MUSCULOSKELETAL: No cyanosis, or edema. BACK: Nontender without obvious deformity. Left nephrostomy tube in place, tender to palpation at site Results - Labs CBC & Chem 7: 12/06/17 05:11 12/06/17 05:11 Laboratory Results - last 24 hr 12/05/17 12/05/17 12/05/17 16:55 16:55 16:55 WBC 14.7 H RBC 4.32 Hgb 12.2 Hct 35.6 MCV 82.3 MCH 28.3 MCHC 34.3 RDW 14.6 Plt Count 417 MPV 7.3 Neut % (Auto) 84.3 H Lymph % (Auto) 9.7 [place] % (Auto) 5.2 Eos % (Auto) 0.5 Baso % (Auto) 0.3 Neut # (Auto) 12.4 H Lymph # (Auto) 1.4 [place] # (Auto) 0.8 Eos # (Auto) 0.1 Baso # (Auto) 0.0 WBC Differential . Differential Comment Auto diff final Sodium 136 Potassium 3.9 Chloride 102 Carbon Dioxide 26.5 Anion Gap 8 BUN 12 Creatinine 0.97 Estimated GFR 65 L Random Glucose 94 Lactic Acid 2.2 H Calcium 8.7 Total Bilirubin 0.4 AST 26 ALT 35 Alkaline Phosphatase 87 Total Protein 7.9 Albumin 3.6 Urine Color Urine Clarity Urine pH Ur Specific [place] Urine Protein Urine Glucose (UA) Urine Ketones Urine Occult Blood Urine Nitrate Urine Bilirubin Urine Urobilinogen Ur Leukocyte Esterase Urine RBC Urine WBC Urine WBC Clumps Urine Bacteria Hyaline Casts Urine Mucus Micro UA Comment Urine Culture Comments 12/05/17 12/06/17 12/06/17 17:01 05:11 05:11 WBC 14.1 H RBC 3.90 L Hgb 10.6 L Hct 32.1 L MCV 82.5 MCH 27.3 MCHC 33.1 RDW 14.6 Plt Count 373 MPV 7.4 Neut % (Auto) 80.2 H Lymph % (Auto) 11.2 [place] % (Auto) 6.9 Eos % (Auto) 1.4 Baso % (Auto) 0.3 Neut # (Auto) 11.3 H Lymph # (Auto) 1.6 [place] # (Auto) 1.0 H Eos # (Auto) 0.2 Baso # (Auto) 0.0 WBC Differential . Differential Comment Auto diff final Sodium 138 Potassium 3.3 L Chloride 104 Carbon Dioxide 23.8 Anion Gap 10 BUN 9 Creatinine 0.92 Estimated GFR 69 L Random Glucose 100 Lactic Acid Calcium 7.8 L D Total Bilirubin 0.5 AST 15 ALT 25 Alkaline Phosphatase 78 Total Protein 6.7 D Albumin 2.9 L D Urine Color Yellow Urine Clarity Cloudy H Urine pH 6.0 Ur Specific [place] 1.009 Urine Protein 500 or greater Urine Glucose (UA) 50 Urine Ketones Negative Urine Occult Blood Moderate H Urine Nitrate Positive H Urine Bilirubin Negative Urine Urobilinogen Less than 2 Ur Leukocyte Esterase Large H Urine RBC 62 H Urine WBC 122 H Urine WBC Clumps Moderate H Urine Bacteria Many H Hyaline Casts 8 Urine Mucus Few H Micro UA Comment Culture indicated Urine Culture Comments Culture indicated Microbiology 12/05/17 17:01 Clean Catch Urine Urine Culture - Preliminary gram negative rods 12/05/17 16:50 Blood - Peripheral Aerobic Blood Culture - Preliminary No growth in 1 day 12/05/17 16:50 Blood - Peripheral Anaerobic Blood Culture - Preliminary No growth in 1 day 12/05/17 16:40 Blood - Peripheral Aerobic Blood Culture - Preliminary No growth in 1 day 12/05/17 16:40 Blood - Peripheral Anaerobic Blood Culture - Preliminary No growth in 1 day - Imaging Impressions Abdomen/Pelvis CT 12/05/17 16:14 CONCLUSION: 1. The left nephrostomy tube is in good position. The left renal stone has fallen from the UPJ back into the kidney. No obstruction observed. There is perinephric stranding and edema involving the left kidney suggesting pyelonephritis. 2. Tiny focus of intraluminal air involving the urinary bladder. This can be seen in recent instrumentation but can also be seen in cystitis with gas producing organisms. Assessment and Plan - Assessment (1) Intractable pain Code(s): R52 - Pain, unspecified Status: Acute (2) Sepsis Code(s): A41.9 - Sepsis, unspecified organism Status: Acute (3) Pyelonephritis Code(s): N12 - Tubulo-interstitial nephritis, not specified as acute or chronic Status: Acute (4) UTI (urinary tract infection) Code(s): N39.0 - Urinary tract infection, site not specified Status: Acute - Plan 37-year-old female with 1. Sepsis: Source-UTI/Pyelonephritis, Follow up cultures, continue IV Abx including ertapenem 2. Pyelonephritis/UTI: Currently on Ertapenem 1gm IV qd pending consultation from ID . Continue with IV fluid hydration 3. Intractable Pain: +left flank pain, h/o Left Nephrostomy, CT Abd/Pelvis w/ left nephrostomy in good position, left renal stone fallen from UPJ into kidney , +perinephric stranding, +intraluminal air, images reviewed. Appreciate input from urology. Analgesics/antiemetics as needed. 4. DVT Prophylaxis: SCD/Teds (2) Sepsis Qualifiers: Sepsis type: sepsis due to unspecified organism Qualified Code(s): A41.9 - Sepsis, unspecified organism
[2017-12-06] MEDS: Ketorolac Inj 30 MG/ML (IVP) Vial IV.PUSH SCH ×3 (14:35→23:58)
--- NOTE | 2017-12-06 21:01 | P.CONID ---
History of Present Illness Service: ID Consult date: 12/06/17 Requesting Physician: Krystal Flowers Reason for Consult: complicated UTI ESBL + Primary Care Provider: Austin Escobar Chief Complaint: Left Flank pain History of Present Illness: 37 yo female with nephrolithiasis sp L nephrostomy placement in September since then she had several episodes of UTI with fever treated with abx she was supposed to have internal stent placed at some point by Dr Lema but the procedure has not taken place yet She presented on 11/26 to ER with malasie and pain and UA was abnormma. Urine culture was positive for ESBL + E.coli Pt was given prescription of macrodantin. She developped throat swelling on it Within few days she noted worsening pain L side and fever up to 100.6 UA markedly abnormal with 122 of WBC she is growing GNR in repeat urine clx SHe is on Ertapenem CT showed L sided pyelo, no obstruction Seen by Dr Marin. He recommended cont tx for UTI and follow up by her urologist Review of Systems All other systems reviewed negative except as stated in HPI PMFSH - History History Provided By: Patient - Medical History Medical History: Medical History (Last Reviewed 12/07/17 @ 06:40 by Laura Devi MD) Kidney stone - Surgical History Surgical History: Surgical History (Last Reviewed 12/07/17 @ 06:40 by Laura Devi MD) H/O breast augmentation H/O nephrostomy Hx of abdominoplasty Previous section - Family History Family History: Family History (Last Reviewed 12/07/17 @ 06:40 by Laura Devi MD) Other Family history normal - Tobacco History Second Hand Smoke Exposure: No Tobacco Use In Past 30 Days: No Smoking Status: Never smoker - Alcohol History How Often Do You Have a Drink Containing Alcohol: Monthly or less - Substance Use History Substance History: No History of Abuse - Travel History History of Recent Travel: No Recent Travel in the [place] Within the Last 8 Weeks: No Recent Travel Out of the Country Within the Last 8 Weeks: No - Immunization History Tetanus Immunization: Unsure Hx Influenza Vaccine This Season: No Medications and Allergies Active Medications: Active Medications Acetaminophen (Tylenol) 650 mg PO Q4H PRN PRN Reason: Temp > 100.4 Hydrocodone Bitart/Acetaminophen ([place] 5/325) 1 tab PO Q4H PRN PRN Reason: PAIN 3-5 Last Admin: 12/06/17 18:00 Dose: 1 tab Al Hydroxide/Mg Hydroxide (Milk Of Magnesia Liq) 30 ml PO Q12H PRN PRN Reason: Mild Constipation Bisacodyl (Dulcolax Supp) 10 mg RECTAL DAILY PRN PRN Reason: SEVERE CONSITIPATION Hydromorphone HCl (Dilaudid Pf Inj) 1 mg IV.PUSH Q4H PRN PRN Reason: PAIN 6-10 Last Admin: 12/06/17 09:12 Dose: 1 mg Sodium Chloride (Ns Inj) 1,000 mls @ 100 mls/hr IV.CONT .Q10H [facility] Last Admin: 12/06/17 17:28 Dose: 100 mls/hr Ertapenem 1,000 mg/ Sodium (Chloride) 100 mls @ 200 mls/hr IV.SIG Q24H [facility] Last Infusion: 12/06/17 04:38 Dose: Infused Ketorolac Tromethamine (Toradol Inj) 15 mg IV.PUSH Q6H [facility] Last Admin: 12/06/17 17:59 Dose: 15 mg Lactulose (Lactulose Liq) 30 ml PO DAILY PRN PRN Reason: SEVERE CONSITIPATION Ondansetron HCl (Zofran Inj) 4 mg IV.PUSH Q6H PRN PRN Reason: NAUSEA OR VOMITING Senna/Docusate Sodium (Polina-Colace) 1 tab PO BID [facility] Last Admin: 12/06/17 09:12 Dose: 1 tab Sennosides (Senokot) 17.2 mg PO Q12H PRN PRN Reason: Moderate Constipation Temazepam (Restoril) 15 mg PO HS PRN PRN Reason: INSOMNIA Allergies Allergy/AdvReac Type Severity Reaction Status Date / Time No Known Allergies Allergy Unverified 11/26/17 11:15 Home Medications Medication Instructions Recorded Confirmed Type nitrofurantoin monohyd/m-cryst 100 mg PO Q12H 12/05/17 12/05/17 History Exam Vital signs: Vital Signs 12/05/17 21:10 12/06/17 00:00 12/06/17 01:55 Temperature 100 F H 98.6 F Pulse Rate 114 H 108 H Respiratory Rate 22 20 18 Blood Pressure 135/71 102/59 L Pulse Oximetry 99 99 12/06/17 04:00 12/06/17 08:00 12/06/17 12:00 Temperature 98.1 F 98.3 F 97.9 F Pulse Rate 98 H 95 H 103 H Respiratory Rate 20 20 20 Blood Pressure 130/67 109/66 121/61 Pulse Oximetry 100 100 99 12/06/17 16:00 Temperature 98.1 F Pulse Rate 87 Respiratory Rate 20 Blood Pressure 114/63 Pulse Oximetry 99 Intake & Output 12/06/17 12/06/17 12/07/17 06:59 18:59 06:59 Intake Total 2420 / 2420 2720 / 2720 Balance 2420 / 2420 2720 / 2720 Weight 71.2 kg Intake: IV 2100 / 2100 1999 / 1999 NS Inj 1,000 ML @ 100 mls/hr IV 1000 / 1000 1999 .CONT .Q10H [facility] Rx#:[id number] INVanz Inj 1,000 MG In NS Inj 100 / 100 100 ML @ 200 mls/hr IV.SIG Q24H [facility] Rx#:[id number] NS Inj 1,000 ML @ Wide Open IV. 1000 / 1000 SIG BOLUS ONE Rx#:[id number] Oral 320 / 320 720 / 720 Other: # Voids 1 4 Date of Last Bowel Movement 12/05/17 12/05/17 Weight On Admission 71.2 kg - Constitutional no acute distress, average body habitus - Routine HEENT Exam Head: Present: normocephalic, atraumatic Eye: Present: EOMI, PERRL ENT: Present: mucous membranes moist, oropharynx clear - Routine Neck Exam Present: supple, full ROM - Routine Respiratory Exam Present: CTA bilaterally Comments: good effort - Routine Cardiovascular Exam Present: RRR, S1, S2 Comments: no murmurs, rubs gallops well perfused perifery - Routine Abdominal Exam Present: soft, normoactive bowel sounds Comments: not tender not distended no organomegaly - Routine Exam Comments: L nephrostomy in place with clear light yellow urine site looks OK, no redness - Routine Extremities Exam Comments: no cyanosis clubbing or edema - Routine Skin Exam Present: intact, dry, warm Comments: no rash - Routine Neurological Exam Present: alert, oriented X3, moving all extremities, vision grossly intact, hearing grossly intact, normal speech - Routine Psychiatric Exam Present: normal affect, normal thought process, cooperative Results - Labs CBC & Chem 7: 12/06/17 05:11 12/06/17 05:11 Labs: Laboratory Results - last 24 hr 12/05/17 12/06/17 12/06/17 17:01 05:11 05:11 WBC 14.1 H RBC 3.90 L Hgb 10.6 L Hct 32.1 L MCV 82.5 MCH 27.3 MCHC 33.1 RDW 14.6 Plt Count 373 MPV 7.4 Neut % (Auto) 80.2 H Lymph % (Auto) 11.2 [place] % (Auto) 6.9 Eos % (Auto) 1.4 Baso % (Auto) 0.3 Neut # (Auto) 11.3 H Lymph # (Auto) 1.6 [place] # (Auto) 1.0 H Eos # (Auto) 0.2 Baso # (Auto) 0.0 WBC Differential . Differential Comment Auto diff final Sodium 138 Potassium 3.3 L Chloride 104 Carbon Dioxide 23.8 Anion Gap 10 BUN 9 Creatinine 0.92 Estimated GFR 69 L Random Glucose 100 Calcium 7.8 L D Total Bilirubin 0.5 AST 15 ALT 25 Alkaline Phosphatase 78 Total Protein 6.7 D Albumin 2.9 L D Urine Color Yellow Urine Clarity Cloudy H Urine pH 6.0 Ur Specific [place] 1.009 Urine Protein 500 or greater Urine Glucose (UA) 50 Urine Ketones Negative Urine Occult Blood Moderate H Urine Nitrate Positive H Urine Bilirubin Negative Urine Urobilinogen Less than 2 Ur Leukocyte Esterase Large H Urine RBC 62 H Urine WBC 122 H Urine WBC Clumps Moderate H Urine Bacteria Many H Hyaline Casts 8 Urine Mucus Few H Micro UA Comment Culture indicated Urine Culture Comments Culture indicated - Imaging Abdomen/Pelvis CT 12/05/17 16:14 CONCLUSION: 1. The left nephrostomy tube is in good position. The left renal stone has fallen from the UPJ back into the kidney. No obstruction observed. There is perinephric stranding and edema involving the left kidney suggesting pyelonephritis. 2. Tiny focus of intraluminal air involving the urinary bladder. This can be seen in recent instrumentation but can also be seen in cystitis with gas producing organisms. Assessment and Plan - Plan Complicated UTI, L sided pyelo in a pt with L nephrostomy ESBL+ E.coli infection Nephrolithiasis sp L side nephrostomy 2 mos ago allergic ractin to NF cont Ertapenem x 2 weeks add nitrofurantoin to allergies pt needs conversion to internal stent as soon as approved by her urologist
[2017-12-07] MEDS: Sod Chloride 0.9% Inj 1,000 ML IV.CONT SCH ×2 (04:46→14:14)
[2017-12-07] MEDS: Ketorolac Inj 30 MG/ML (IVP) Vial IV.PUSH SCH ×3 (06:15→18:06)
[2017-12-07] MEDS: Senna/Docusate Sodium 8.6/50 MG Tablet PO SCH ×2 (08:06→20:48)
--- NOTE | 2017-12-07 12:15 | P.PNIM ---
Subjective Interval history: Pt seen and examined for f/u pyelonephritis secondary to infected stone. AFVSS. Patient continues to have L CVA tenderness radiating to her LLQ. Appetite is down but denies nausea or vomiting. She isn't ambulating too much as this exacerbates her pain. She continues to have dysuria though improved as well as hematuria with pink-tinged urine. She is anxious to speak with urology tomorrow and hopes to have some sort of intervention to remove the stone so this doesn't keep happening to her. Physical Exam Vital signs: Vital Signs 12/06/17 16:00 12/06/17 20:00 12/06/17 20:47 Temperature 98.1 F 97.8 F Pulse Rate 87 87 85 Respiratory Rate 20 16 Blood Pressure 114/63 112/70 Pulse Oximetry 99 100 12/07/17 00:00 12/07/17 01:37 12/07/17 03:18 Temperature 97.7 F Pulse Rate 85 84 Respiratory Rate 16 17 Blood Pressure 127/74 Pulse Oximetry 100 12/07/17 03:54 12/07/17 04:00 12/07/17 08:00 Temperature 97.1 F L 97.6 F Pulse Rate 73 74 70 Respiratory Rate 16 18 Blood Pressure 111/63 120/75 Pulse Oximetry 97 100 Intake & Output 12/06/17 12/07/17 12/07/17 18:59 06:59 18:59 Intake Total 2720 / 2720 1100 / 1100 Output Total 200 / 200 Balance 2720 / 2720 900 / 900 Weight 71.2 kg Intake: IV 1999 1100 / 1100 NS Inj 1,000 ML @ 100 mls/hr IV 1999 1000 / 1000 .CONT .Q10H PRAFUL Rx#:[id number] INVanz Inj 1,000 MG In NS Inj 100 / 100 100 ML @ 200 mls/hr IV.SIG Q24H PRAFUL Rx#:[id number] Oral 720 / 720 Output: Urine 200 / 200 Other: # Voids 4 1 Date of Last Bowel Movement 12/05/17 12/05/17 12/05/17 Narrative: GENERAL: WN, WD female resting in bed in NAD. SKIN: Warm and dry. HEART: RRR no m/r/g. LUNGS: CTAB without wheezes or crackles. ABDOMEN: +BS, soft, NT, ND. EXTREMITIES: No LE edema. 2+ pedal pulses. BACK: +L CVA TTP. L nephrostomy tube in place. NEURO: Awake and alert. Results - Labs CBC & Chem 7: 12/06/17 05:11 12/06/17 05:11 Laboratory Results - last 24 hr 12/05/17 17:01 Urine Color Yellow Urine Clarity Cloudy H Urine pH 6.0 Ur Specific [place] 1.009 Urine Protein 500 or greater Urine Glucose (UA) 50 Urine Ketones Negative Urine Occult Blood Moderate H Urine Nitrate Positive H Urine Bilirubin Negative Urine Urobilinogen Less than 2 Ur Leukocyte Esterase Large H Urine RBC 62 H Urine WBC 122 H Urine WBC Clumps Moderate H Urine Bacteria Many H Hyaline Casts 8 Urine Mucus Few H Micro UA Comment Culture indicated Urine Culture Comments Culture indicated Microbiology 12/05/17 16:50 Blood - Peripheral Aerobic Blood Culture - Preliminary No growth in 2 days 12/05/17 16:50 Blood - Peripheral Anaerobic Blood Culture - Preliminary No growth in 2 days 12/05/17 16:40 Blood - Peripheral Aerobic Blood Culture - Preliminary No growth in 2 days 12/05/17 16:40 Blood - Peripheral Anaerobic Blood Culture - Preliminary No growth in 2 days 12/05/17 17:01 Clean Catch Urine Urine Culture - Preliminary gram negative rods Assessment and Plan - Assessment (1) Sepsis Code(s): A41.9 - Sepsis, unspecified organism Status: Resolved (2) Pyelonephritis Code(s): N12 - Tubulo-interstitial nephritis, not specified as acute or chronic Status: Acute (3) UTI (urinary tract infection) Code(s): N39.0 - Urinary tract infection, site not specified Status: Acute - Plan 37 YO female with history of L renal stone s/p L nephrostomy tube admitted on 12/05 for sepsis secondary to pyelonephritis. 1. Pyelonephritis, suspect infected stone - U/A with + nitrate and leukocyte esterase - CT A/P showing left nephrostomy tube in good position, left renal stone in the kidney with no obstruction, perinephric stranding and edema of L kidney suggestive of pyelo - Initially septic on presentation with fever, tachycardic, leukocytosis, and elevated lactic acid - Urine culture growing ESBL E. coli - ID following, recommend Ertapenem x 2 weeks - Urology following, recommend stone removal once UTI treated - Continue NS at 100 ml/hr - Toradol, [place], an Dilaudid PRN - Zofran PRN DVT prophylaxis: SCDs Discussed Condition With: Patient (1) Sepsis Qualifiers: Sepsis type: sepsis due to unspecified organism Qualified Code(s): A41.9 - Sepsis, unspecified organism
[2017-12-08] MEDS: Ketorolac Inj 30 MG/ML (IVP) Vial IV.PUSH SCH ×4 (00:14→18:11)
[2017-12-08 05:49] LABS: Hematocrit 32.3 % (35.0-46.0); Hemoglobin 10.7 gm/dL (11.6-15.3); Mean Corpuscular HGB Conc 33.2 % (32.0-36.0); Mean Corpuscular Hemoglobin 27.6 pg (27.0-34.0); Mean Corpuscular Volume 83.1 fL (80.0-100.0); Mean Platelet Volume 7.4 fL (7.0-11.0); Platelet Count 350 th/mm3 (150-450); Red Blood Count 3.89 mil/mm3 (4.00-5.30); Red Cell Distribution Width 14.1 % (11.6-17.2); White Blood Count 6.4 th/mm3 (4.0-11.0)
[2017-12-08 06:12] LABS: Anion Gap 9 meq/L (5-15); Blood Urea Nitrogen 9 mg/dL (7-18); Calcium 8.1 mg/dL (8.5-10.1); Carbon Dioxide 23.7 meq/L (21.0-32.0); Chloride 109 meq/L (98-107); Glomerular Filtration Rate Greater Than 89 mL/min (>89); Glucose,Random 80 mg/dL (74-106); Potassium 3.9 meq/L (3.5-5.1); Sodium 142 meq/L (136-145)
[2017-12-08] MEDS: Sod Chloride 0.9% Inj 1,000 ML IV.CONT SCH ×4 (06:23→18:17)
[2017-12-08] MEDS: Senna/Docusate Sodium 8.6/50 MG Tablet PO SCH ×2 (08:42→20:13)
--- NOTE | 2017-12-08 10:20 | P.DCO ---
Post Hospital Infusion Therapy Location of Infusion Therapy: Home Health Care IV Infusion Order Patient Weight: 71.2 kg - Diagnosis (1) Pyelonephritis Code(s): N12 - Tubulo-interstitial nephritis, not specified as acute or chronic - Administer Medication Ertapenem Dose: 1 gram IV Directions: q 24 hours Start Treatment: 12/09/17 Stop Treatment: 12/19/17 - Additional Information Venous Access: Other (midline) Additional Instructions: [x] Peripheral flush and dressing changes per protocol [x] Implanted port and central airline pilot: * Implanted port: 10 ml Normal Saline followed by 5 ml Heparin 100 units/ml Heparin flush after each use and monthly to maintain. [] May leave port accessed during therapy. [] May leave peripheral site accessed for duration of therapy. [x] If patient has SOB or respiratory distress, check oxygen saturation. If less than 90% or clinical signs of respiratory distress, administer oxygen at 2 L/min. via nasal cannula and notify physician. [x] Anaphylaxis/Reaction orders: * Stop infusion. * Keep IV line open with saline flush. * Notify physician. * Monitor vital signs every 15 minutes until symptoms resolve. * Check Oxygen saturation; Oxygen at 2 L/min. via nasal cannula if less than 90% or clinical signs of respiratory distress. * Administer diphenhydramine (Benadryl) 25 mg IV STAT, (unless patient has received as pre-med). May repeat once, if necessary. * Solu-Cortef 250 mg IVP over 30-60 seconds, use 100 mg vials for each dissolution. * Epinephrine (1mg/1 ml) 0.3 mg subcutaneously or IVP now with any signs of respiratory distress. * Check with physician for new additional pre-med orders if patient is re- challenged or re-treated. [x] May remove PICC line when treatment complete, after confirming with Physician. [x] If the patient is admitted to the hospital, the ED, or transferred via [facility] , complete transfer form including medication reconciliation order sheet. Weekly Labs: CBC w/diff, Creatinine Allergies nitrofurantoin Allergy (Verified 12/07/17 06:50) Swelling of Lip/Tongue/Throat
--- NOTE | 2017-12-08 10:49 | P.PNIM ---
Subjective Interval history: Pt seen and examined for f/u of pyelonephritis. AFVSS. Pt endorses continued L CVA tenderness and mild dysuria. She is not getting out of bed too much. Appetite is down and patient not eating too well. She has a family friend present in the room who is also an trade mark attorney. He requests to speak to the urologist today. He has questions about whether we believe the nephrostomy tube is infected and I explained that is not the case and it is likely the stone is infected and needs to be removed. He is wondering if that can happen in-house because he is worried that she is going to be discharged on antibiotics but then get infected again prior to the procedure being able to be done. Physical Exam Vital signs: Vital Signs 12/07/17 12:00 12/07/17 16:00 12/07/17 20:00 Temperature 98.0 F 97.6 F 97.9 F Pulse Rate 79 73 69 Respiratory Rate 18 18 16 Blood Pressure 118/76 125/75 127/76 Pulse Oximetry 98 100 100 12/08/17 00:00 12/08/17 04:00 12/08/17 08:00 Temperature 97.6 F 97.7 F 96.5 F L Pulse Rate 75 68 79 Respiratory Rate 16 17 19 Blood Pressure 122/73 117/81 120/74 Pulse Oximetry 100 98 100 Intake & Output 12/07/17 12/08/17 12/08/17 18:59 06:59 18:59 Intake Total 1570 / 1570 1100 / 1100 Output Total 100 / 100 Balance 1570 / 1570 1000 / 1000 Weight 71.2 kg 71.2 kg Intake: IV 970 / 970 1100 / 1100 NS Inj 1,000 ML @ 100 mls/hr IV 970 / 970 1000 / 1000 .CONT .Q10H PRAFUL Rx#:[id number] INVanz Inj 1,000 MG In NS Inj 100 / 100 100 ML @ 200 mls/hr IV.SIG Q24H PRAFUL Rx#:[id number] Oral 600 / 600 Output: Urine 100 / 100 Other: # Voids 3 1 Date of Last Bowel Movement 12/05/17 12/07/17 Narrative: GENERAL: WN, WD female resting in bed in NAD. SKIN: Warm and dry. HEART: RRR no m/r/g. LUNGS: CTAB without wheezes or crackles. ABDOMEN: +BS, soft, NT, ND. EXTREMITIES: No LE edema. 2+ pedal pulses. BACK: +L CVA TTP. L nephrostomy tube in place. No surrounding erythema or drainage. NEURO: Awake and alert. Results - Labs CBC & Chem 7: 12/08/17 05:05 12/08/17 05:05 Laboratory Results - last 24 hr 12/08/17 12/08/17 05:05 05:05 WBC 6.4 RBC 3.89 L Hgb 10.7 L Hct 32.3 L MCV 83.1 MCH 27.6 MCHC 33.2 RDW 14.1 Plt Count 350 MPV 7.4 Sodium 142 Potassium 3.9 Chloride 109 H Carbon Dioxide 23.7 Anion Gap 9 BUN 9 Creatinine 0.68 Estimated GFR Greater than 89 Random Glucose 80 Calcium 8.1 L Microbiology 12/05/17 17:01 Clean Catch Urine Urine Culture - Final Escherichia coli ESBL positive 12/05/17 16:50 Blood - Peripheral Aerobic Blood Culture - Preliminary No growth in 2 days 12/05/17 16:50 Blood - Peripheral Anaerobic Blood Culture - Preliminary No growth in 2 days 12/05/17 16:40 Blood - Peripheral Aerobic Blood Culture - Preliminary No growth in 2 days 12/05/17 16:40 Blood - Peripheral Anaerobic Blood Culture - Preliminary No growth in 2 days Assessment and Plan - Assessment (1) Sepsis Code(s): A41.9 - Sepsis, unspecified organism Status: Resolved (2) Pyelonephritis Code(s): N12 - Tubulo-interstitial nephritis, not specified as acute or chronic Status: Acute (3) UTI (urinary tract infection) Code(s): N39.0 - Urinary tract infection, site not specified Status: Acute - Plan 37 YO female with history of L renal stone s/p L nephrostomy tube admitted on 12/05 for sepsis secondary to pyelonephritis. 1. Pyelonephritis, suspect infected stone - U/A with + nitrate and leukocyte esterase - CT A/P showing left nephrostomy tube in good position, left renal stone in the kidney with no obstruction, perinephric stranding and edema of L kidney suggestive of pyelo - Initially septic on presentation with fever, tachycardic, leukocytosis, and elevated lactic acid - Urine culture growing ESBL E. coli - ID following, recommend Ertapenem x 2 weeks. Form for outpatient infusion filled - Urology following, recommend stone removal once UTI treated - Continue NS at 100 ml/hr - Toradol, [place], an Dilaudid PRN - Zofran PRN 2. L renal stone - CT A/P shows the left renal stone has fallen from the UPJ back into the kidney - Pain control - Urology following 3. Sepsis - Resolved DVT prophylaxis: SCDs Discussed Condition With: Patient Discharge Planning: Once we have a urologic plan in place. Will reach out to Dr. Lema today. ID has already completed outpatient abx form for discharge. (1) Sepsis Qualifiers: Sepsis type: sepsis due to unspecified organism Qualified Code(s): A41.9 - Sepsis, unspecified organism
--- NOTE | 2017-12-08 14:58 | P.PNADD ---
Addendum to Inpatient Note Additional information: dw Dr Lema Pt was scheduled to see him, but never actiually was seenSHe was originally seen by Dr Russell in [facility] who placed nephrostomy tube PLan: Dr Lema is planning to see the pt will ask IR to exchange nephrostomy meanwhile
--- NOTE | 2017-12-08 15:37 | P.CONURO ---
History of Present Illness Consult date: 12/08/17 Requesting Physician: Laura Devi Reason for Consult: Left renal calculus status post nephrostomy tube placement Primary Care Provider: Austin Escobar Chief Complaint: Left Flank pain History of Present Illness: 37-year-old female with history of an obstructing 11 mm left ureteropelvic junction calculus who was evaluated by Dr. Guillory approximately 2 months ago and had a left nephrostomy tube placed over at [facility]. Patient was unable to follow-up with as he did not take this patient's insurance. A referral was placed to my office for continuity of her urologic care and prior to being evaluated over at my office the patient was admitted here at [facility] with left pyelonephritis. Patient was evaluated by Dr. Weir over this past weekend and he deferred further urologic management to me. I was contacted by Dr. Toño Devi earlier this afternoon and asked to evaluate this patient. The patient did have a CT scan of the abdomen and pelvis during this hospitalization that demonstrated the 11 mm left renal calculus to be within the left renal pelvis. The left nephrostomy tube appeared to be in good position. There was some perinephric stranding around the left kidney consistent with pyelonephritis. The right kidney was unremarkable. Since being admitted to the hospital the patient has responded well to antibiotic therapy. Urine culture was ESBL positive. Review of Systems Gastrointestinal: Denies abdominal pain Genitourinary: Denies blood in urine, Denies painful urination Musculoskeletal: Denies back pain PMFSH - History History Provided By: Patient - Medical History Medical History: Medical History (Last Reviewed 12/07/17 @ 06:40 by Laura Devi MD) Kidney stone - Surgical History Surgical History: Surgical History (Last Reviewed 12/07/17 @ 06:40 by Laura Devi MD) H/O breast augmentation H/O nephrostomy Hx of abdominoplasty Previous section - Family History Family History: Family History (Last Reviewed 12/07/17 @ 06:40 by Laura Devi MD) Other Family history normal - Tobacco History Second Hand Smoke Exposure: No Tobacco Use In Past 30 Days: No Smoking Status: Never smoker - Alcohol History How Often Do You Have a Drink Containing Alcohol: Monthly or less - Substance Use History Substance History: No History of Abuse - Travel History History of Recent Travel: No Recent Travel in the [place] Within the Last 8 Weeks: No Recent Travel Out of the Country Within the Last 8 Weeks: No - Immunization History Tetanus Immunization: Unsure Hx Influenza Vaccine This Season: No Medications and Allergies Active Medications: Active Medications Acetaminophen (Tylenol) 650 mg PO Q4H PRN PRN Reason: Temp > 100.4 Hydrocodone Bitart/Acetaminophen ([place] 5/325) 1 tab PO Q4H PRN PRN Reason: PAIN 3-5 Last Admin: 12/08/17 12:20 Dose: 1 tab Al Hydroxide/Mg Hydroxide (Milk Of Magnesia Liq) 30 ml PO Q12H PRN PRN Reason: Mild Constipation Bisacodyl (Dulcolax Supp) 10 mg RECTAL DAILY PRN PRN Reason: SEVERE CONSITIPATION Hydromorphone HCl (Dilaudid Pf Inj) 1 mg IV.PUSH Q4H PRN PRN Reason: PAIN 6-10 Last Admin: 12/06/17 09:12 Dose: 1 mg Sodium Chloride (Ns Inj) 1,000 mls @ 100 mls/hr IV.CONT .Q10H [facility] Last Admin: 12/08/17 08:48 Dose: Not Given Ertapenem 1,000 mg/ Sodium (Chloride) 100 mls @ 200 mls/hr IV.SIG Q24H [facility] Last Infusion: 12/08/17 06:24 Dose: Infused Ketorolac Tromethamine (Toradol Inj) 15 mg IV.PUSH Q6H [facility] Last Admin: 12/08/17 12:20 Dose: 15 mg Lactulose (Lactulose Liq) 30 ml PO DAILY PRN PRN Reason: SEVERE CONSITIPATION Ondansetron HCl (Zofran Inj) 4 mg IV.PUSH Q6H PRN PRN Reason: NAUSEA OR VOMITING Senna/Docusate Sodium (Polina-Colace) 1 tab PO BID [facility] Last Admin: 12/08/17 08:42 Dose: 1 tab Sennosides (Senokot) 17.2 mg PO Q12H PRN PRN Reason: Moderate Constipation Temazepam (Restoril) 15 mg PO HS PRN PRN Reason: INSOMNIA Last Admin: 12/08/17 00:14 Dose: 15 mg Allergies Allergy/AdvReac Type Severity Reaction Status Date / Time nitrofurantoin Allergy Swelling Verified 12/07/17 06:50 of Lip/Tongue/Throat Home Medications Medication Instructions Recorded Confirmed Type nitrofurantoin monohyd/m-cryst 100 mg PO Q12H 12/05/17 12/05/17 History Physical Exam Vital Signs - 24 hr 12/07/17 16:00 12/07/17 20:00 12/08/17 00:00 Temperature 97.6 F 97.9 F 97.6 F Pulse Rate 73 69 75 Respiratory Rate 18 16 16 Blood Pressure 125/75 127/76 122/73 Pulse Oximetry 100 100 100 12/08/17 04:00 12/08/17 08:00 12/08/17 12:00 Temperature 97.7 F 96.5 F L 97.7 F Pulse Rate 68 79 68 Respiratory Rate 17 19 19 Blood Pressure 117/81 120/74 134/82 Pulse Oximetry 98 100 100 12/08/17 12:50 Temperature Pulse Rate Respiratory Rate 18 Blood Pressure Pulse Oximetry Physical Exam: GENERAL: This is a well-nourished, well-developed patient, in no apparent distress. SKIN: No rashes, ecchymoses or lesions. Cool and dry. HEAD: Atraumatic. Normocephalic. No temporal or scalp tenderness. EYES: Pupils equal round and reactive. Extraocular motions intact. No scleral icterus. No injection or drainage. ENT: Nose without bleeding, purulent drainage or septal hematoma. Throat without erythema, tonsillar hypertrophy or exudate. Uvula midline. Airway patent. NECK: Trachea midline. No JVD or lymphadenopathy. Supple, nontender, no meningeal signs. CARDIOVASCULAR: Regular rate and rhythm without murmurs, gallops, or rubs. RESPIRATORY: Clear to auscultation. Breath sounds equal bilaterally. No wheezes , rales, or rhonchi. GASTROINTESTINAL: Abdomen soft, non-tender, nondistended. No hepato-splenomegaly , or palpable masses. No guarding. GENITOURINARY: Left nephrostomy tube draining yellow urine. MUSCULOSKELETAL: Extremities without clubbing, cyanosis, or edema. No joint tenderness, effusion, or edema noted. No calf tenderness. Negative Homans sign bilaterally. NEUROLOGICAL: Awake and alert. Cranial nerves II through XII intact. Motor and sensory grossly within normal limits. Five out of 5 muscle strength in all muscle groups. Normal speech. Laboratory Results - last 24 hr 12/08/17 12/08/17 05:05 05:05 WBC 6.4 RBC 3.89 L Hgb 10.7 L Hct 32.3 L MCV 83.1 MCH 27.6 MCHC 33.2 RDW 14.1 Plt Count 350 MPV 7.4 Sodium 142 Potassium 3.9 Chloride 109 H Carbon Dioxide 23.7 Anion Gap 9 BUN 9 Creatinine 0.68 Estimated GFR Greater than 89 Random Glucose 80 Calcium 8.1 L Microbiology 12/05/17 16:50 Aerobic Blood Culture - Preliminary Blood - Peripheral No growth in 3 days Anaerobic Blood Culture - Preliminary No growth in 3 days 12/05/17 16:40 Aerobic Blood Culture - Preliminary Blood - Peripheral No growth in 3 days Anaerobic Blood Culture - Preliminary No growth in 3 days 12/05/17 17:01 Urine Culture - Final Clean Catch Urine Escherichia coli ESBL positive Result Diagrams: 12/08/17 05:05 12/08/17 05:05 Imaging: ITS Impressions Abdomen/Pelvis CT 12/05/17 16:14 CONCLUSION: 1. The left nephrostomy tube is in good position. The left renal stone has fallen from the UPJ back into the kidney. No obstruction observed. There is perinephric stranding and edema involving the left kidney suggesting pyelonephritis. 2. Tiny focus of intraluminal air involving the urinary bladder. This can be seen in recent instrumentation but can also be seen in cystitis with gas producing organisms. Assessment and Plan - Assessment (1) Kidney stone on left side Code(s): N20.0 - Calculus of kidney Status: Chronic (2) Pyelonephritis Code(s): N12 - Tubulo-interstitial nephritis, not specified as acute or chronic Status: Acute - Plan Urologic impression: 1. History obstructing 11 mm left ureteropelvic junction calculus status post left nephrostomy tube placement approximately 2 months ago. 2. Left pyelonephritis related to a chronically indwelling left nephrostomy tube along with a likely infected calculus. 3. Clinical improvement since being admitted Recommendations: 1. Antibiotic therapy as per ID recommendations. 2. Change out left nephrostomy tube today by interventional radiology. 3. We will place patient on the OR schedule for a left extra corporeal shockwave lithotripsy next Friday. 4. Discharge home once cleared by ID.
[2017-12-08] MEDS ORDERED: fentaNYL Citrate Inj 250 MCG/5 ML Ampul ONE (16:07)
--- NOTE | 2017-12-08 16:45 | P.RAD ---
Post Procedure Progress Note - Procedure Information Procedure Date: 12/08/17 Supervising Radiologist: Marcus Langley MD Estimated blood loss (mL): 0 Anesthesia: Local - Plan of Activity Patient to Unit: Nursing Unit Patient Condition: Good See PACS Report for procedural detail/treatment.
[2017-12-08] MEDS ORDERED: Iohexol 350 MG/ML 50 ML Vial (for Rad Diag) PO ONE (17:04)
--- NOTE | 2017-12-08 17:34 | IR ---
EXAM DATE: 12/08/2017 5:17 PM EDT AGE/SEX: 37 years / Female INDICATIONS: Patient with a history of left renal calculi. CLINICAL DATA: This is the patient's initial encounter. Patient reports that signs and symptoms have been present for 2 months and indicates a pain score of 0/10. MEDICAL/SURGICAL HISTORY: . Kidney stone . Renal calculiNephrostomy tube [place] [facility] [place]EL[place]/O CONTRAST, 12/05/2017. . FLUORO TIME (min): 2.2 IMAGE SERIES: 9 CONTRAST (cc): 20cc Omnipaque (iohexol) 350 MEDICATION(S): 100mcg fentanyl (Sublimaze) IV DEVICE(S): 8 Hungarian nephrostomy catheter . . PROCEDURE: 1. Antegrade pyelogram. 2. Nephrostomy tube exchange. The risks, benefits and alternatives to the procedure were explained and verbal and written consent w as obtained. The site was prepped in sterile fashion. Full sterile technique was used, including ca p, mask, sterile gloves and gown and a large sterile sheet. Hand hygiene and 2% chlorhexidine and/or betadine/alcohol prep was utilized per protocol for cutaneous antisepsis. The skin and subcutaneous tissues were infiltrated with local anesthetic solution. With fluoroscopic guidance antegrade pyelo gram was performed. This demonstrated no significant residual hydronephrosis or definite focal filling defect. Free flow contrast noted to the bladder. Over a guidewire the prescribed nephrostomy tube was placed. Injection of positive contrast demonstra tom good position of the catheter within the collecting system. Conscious sedation was performed with the prescribed dosages and duration as above in the presence of an independent trained radiology nurse to assist in the monitoring of the patient. EKG and oximetry remained stable throughout the procedure. The patient tolerated the procedure well and there were n o complications. The patient was sent to post anesthesia recovery in stable condition. CONCLUSION: 1. Uncomplicated nephrostomy tube exchange as above. 2. Antegrade nephrostogram demonstrates no significant residual hydronephrosis or definite focal aren ling defect with free flow of contrast to the bladder. Electronically signed by: Marcus Langley MD 12/08/2017 5:33 PM EDT
[2017-12-08 23:55] VITALS: RESP 16
[2017-12-09] MEDS: Ketorolac Inj 30 MG/ML (IVP) Vial IV.PUSH SCH ×3 (01:09→11:48)
[2017-12-09] MEDS: Sod Chloride 0.9% Inj 1,000 ML IV.CONT SCH ×3 (04:15→13:45)
[2017-12-09] MEDS: Senna/Docusate Sodium 8.6/50 MG Tablet PO SCH (09:11)
[2017-12-09 09:38] VITALS: O2SAT 100
--- NOTE | 2017-12-09 12:06 | P.DCO ---
- Home Health Nursing Order: IV medication administration Instructions: Invanz 1g IV daily through dec 19 remove midline after completion of Abx - Certification I have seen patient Ginny Saenz on 12/09/17. My clinical findings support the need for the requested home health care services because: Infection with risk of complications I certify that my clinical findings support that this patient is homebound because: Need for psychosocial assistance
--- NOTE | 2017-12-09 12:09 | P.DS ---
Date of admission: 12/05/17 20:41 Primary care physician: Austin Escobar Anticipated date of discharge: 12/09/17 Brief History from admission: This is a 37-year-old female with a PMH of Renal Stone s/p Left Nephrostomy Tube who presented to the ER w/ complaints of left flank pain in addition to fever of 102. Reports flank pain is severe, 10/10, worse w/ leg straightening, no alleviating factors. +nausea, but no vomiting. Has h/o Left Nephrostomy Tube placement at [facility] 2 mo ago, was seen here in the ER on for c/o flank pain, U/a w/ +UTI, d/c'd on Keflex 500mg po q8h and referred to Urology. Previously on Cipro. On arrival, BP 141/80, HR 123, O2 sat 100% on RA, Temp 100.6. WBC 14.7. Chemistry unremarkable. Lactic Acid 2.2. UA positive for UTI. Urine Culture from 11/26/2017 reviewed, ESBL positive. CT Abdomen/Pelvis w/ left nephrostomy in good position, left renal stone has fallen from UPJ into the kidney, no obstruction, perinephric stranding and edema suggesting pyelonephritis, tiny focus of intraluminal air in the urinary bladder. Dr. Weir consulted, recommended eval by Dr. Lema in am. DS: Diagnosis - Discharge Diagnosis (1) Infection due to ESBL-producing Escherichia coli Status: Acute (2) Pyelonephritis Status: Acute DS: Summary Hospital Course: These are the medical issues addressed during this hospitalization: 37 YO female with history of L renal stone s/p L nephrostomy tube admitted on 12/05 for sepsis secondary to pyelonephritis. 1. Pyelonephritis, suspect infected stone - U/A with + nitrate and leukocyte esterase - CT A/P showing left nephrostomy tube in good position, left renal stone in the kidney with no obstruction, perinephric stranding and edema of L kidney suggestive of pyelonephritis. - Initially septic on presentation with fever, tachycardic, leukocytosis, and elevated lactic acid - Urine culture growing ESBL E. coli - ID following, recommend Ertapenem x 2 weeks through December 19. Form for outpatient infusion filled, home health care IV infusion set up for patient - Urology Dr. Lema following, recommend stone removal once UTI treated - Continue NS at 100 ml/hr during hospitalization - Toradol, [place], an Dilaudid PRN - Zofran PRN 2. L renal stone - CT A/P shows the left renal stone has fallen from the UPJ back into the kidney - Pain control - Urology following 3. Sepsis - Resolved DVT prophylaxis: SCDs Patient has gained maximum benefit from hospitalization is ready to be discharged to home today. - Time Spent with Patient Total time spent providing and/or coordinating discharge services: Less than 30 minutes - Quality: VTE Deep Vein Thrombosis/Pulmonary Embolism Present on Admission: No Exam Vital signs: Vital Signs 12/08/17 12:50 12/08/17 16:00 12/08/17 20:00 Temperature 97.9 F 97.8 F Pulse Rate 80 68 Respiratory Rate 18 18 16 Blood Pressure 122/74 116/65 Pulse Oximetry 100 97 12/08/17 21:01 12/08/17 23:54 12/09/17 00:10 Temperature 97.5 F L Pulse Rate 64 67 58 L Respiratory Rate 16 Blood Pressure 121/73 Pulse Oximetry 100 12/09/17 03:56 12/09/17 04:00 12/09/17 08:00 Temperature 97.6 F 98.0 F Pulse Rate 59 L 66 66 Respiratory Rate 16 16 Blood Pressure 116/59 L 125/70 Pulse Oximetry 97 100 12/09/17 08:17 Temperature Pulse Rate 70 Respiratory Rate Blood Pressure Pulse Oximetry Intake & Output 12/08/17 12/09/17 12/09/17 18:59 06:59 18:59 Intake Total 500 / 500 1580 / 1580 1000 / 1000 Output Total 200 / 200 Balance 500 / 500 1380 / 1380 1000 / 1000 Weight 71.2 kg 71.2 kg Intake: IV 500 / 500 1100 / 1100 1000 / 1000 NS Inj 1,000 ML @ 100 mls/hr IV 500 / 500 1000 / 1000 1000 / 1000 .CONT .Q10H [facility] Rx#:[id number] INVanz Inj 1,000 MG In NS Inj 100 / 100 100 ML @ 200 mls/hr IV.SIG Q24H [facility] Rx#:[id number] Oral 480 / 480 Output: Urine Amount (Stoma) 200 / 200 Nephrostomy Tube Left 200 / 200 Other: Date of Last Bowel Movement 12/08/17 12/08/17 12/08/17 # Bowel Movements 1 Results Procedures completed during hospitalization: midline placement 12/08 nephrostomy tube change Labs on day of discharge: Preliminary micro results at discharge 12/05/17 16:50 Aerobic Blood Culture - Preliminary Blood - Peripheral No growth in 4 days Anaerobic Blood Culture - Preliminary No growth in 4 days 12/05/17 16:40 Aerobic Blood Culture - Preliminary Blood - Peripheral No growth in 4 days Anaerobic Blood Culture - Preliminary No growth in 4 days - Impressions ITS Impressions Abdomen/Pelvis CT 12/05/17 16:14 CONCLUSION: 1. The left nephrostomy tube is in good position. The left renal stone has fallen from the UPJ back into the kidney. No obstruction observed. There is perinephric stranding and edema involving the left kidney suggesting pyelonephritis. 2. Tiny focus of intraluminal air involving the urinary bladder. This can be seen in recent instrumentation but can also be seen in cystitis with gas producing organisms. Nephrostomy Tube Change 12/08/17 00:00 CONCLUSION: 1. Uncomplicated nephrostomy tube exchange as above. 2. Antegrade nephrostogram demonstrates no significant residual hydronephrosis or definite focal filling defect with free flow of contrast to the bladder. Discharge Plan - Discharge Disposition Patient Disposition: /Home Health Service - Discharge Condition Condition: Stable - Discharge Order Discharge Orders: Discharge Order (Routine); Ordered 12/09/17 Ordered By: Camille Rojas - Discharge Details Anticipated Discharge Date: 12/09/17 - Physicians Team Attending Provider: Camille Rojas Other Providers: Laura Devi MD ; Kareem Weir MD ; Auto Mute
--- NOTE | 2017-12-09 14:22 | P.PNURO ---
Subjective Patient symptoms today: Denies complaints. Reports left nephrostomy tube changed out yesterday without any difficulty. Objective Vital Signs: Vital Signs 12/08/17 16:00 12/08/17 20:00 12/08/17 21:01 Temperature 97.9 F 97.8 F Pulse Rate 80 68 64 Respiratory Rate 18 16 Blood Pressure 122/74 116/65 Pulse Oximetry 100 97 12/08/17 23:54 12/09/17 00:10 12/09/17 03:56 Temperature 97.5 F L Pulse Rate 67 58 L 59 L Respiratory Rate 16 Blood Pressure 121/73 Pulse Oximetry 100 12/09/17 04:00 12/09/17 08:00 12/09/17 08:17 Temperature 97.6 F 98.0 F Pulse Rate 66 66 70 Respiratory Rate 16 16 Blood Pressure 116/59 L 125/70 Pulse Oximetry 97 100 Intake & Output 12/08/17 12/09/17 12/09/17 18:59 06:59 18:59 Intake Total 500 / 500 1580 / 1580 1000 / 1000 Output Total 200 / 200 Balance 500 / 500 1380 / 1380 1000 / 1000 Weight 71.2 kg 71.2 kg Intake: IV 500 / 500 1100 / 1100 1000 / 1000 NS Inj 1,000 ML @ 100 mls/hr IV 500 / 500 1000 / 1000 1000 / 1000 .CONT .Q10H [facility] Rx#:[id number] INVanz Inj 1,000 MG In NS Inj 100 / 100 100 ML @ 200 mls/hr IV.SIG Q24H [facility] Rx#:[id number] Oral 480 / 480 Output: Urine Amount (Stoma) 200 / 200 Nephrostomy Tube Left 200 / 200 Other: Date of Last Bowel Movement 12/08/17 12/08/17 12/08/17 # Bowel Movements 1 Result Diagrams: 12/08/17 05:05 12/08/17 05:05 Imaging: Impressions Nephrostomy Tube Change 12/08/17 00:00 CONCLUSION: 1. Uncomplicated nephrostomy tube exchange as above. 2. Antegrade nephrostogram demonstrates no significant residual hydronephrosis or definite focal filling defect with free flow of contrast to the bladder. Medications and IVs: Active Medications Generic Name Dose Route Start Last Admin Trade Name Freq PRN Reason Stop Dose Admin Acetaminophen 650 mg 12/05/17 19:07 Tylenol PO Q4H PRN Temp > 100.4 Hydrocodone Bitart/Acetaminophen 1 tab 12/05/17 19:06 12/08/17 18:11 [place] 5/325 PO 1 tab Q4H PRN Administration PAIN 3-5 Al Hydroxide/Mg Hydroxide 30 ml 12/05/17 19:07 Milk Of Magnesia Liq PO Q12H PRN Mild Constipation Bisacodyl 10 mg 12/05/17 19:07 Dulcolax Supp RECTAL DAILY PRN SEVERE CONSITIPATION Hydromorphone HCl 1 mg 12/05/17 19:06 12/06/17 09:12 Dilaudid Pf Inj IV.PUSH 1 mg Q4H PRN Administration PAIN 6-10 Sodium Chloride 1,000 mls @ 100 mls/hr 12/05/17 19:15 12/09/17 13:45 Ns Inj IV.CONT Not Given .Q10H [facility] Ertapenem 1,000 mg/ Sodium 100 mls @ 200 mls/hr 12/06/17 02:00 12/09/17 01:46 Chloride IV.SIG Infused Q24H [facility] Infusion Ketorolac Tromethamine 15 mg 12/06/17 12:45 12/09/17 11:48 Toradol Inj IV.PUSH 15 mg Q6H [facility] Administration Lactulose 30 ml 12/05/17 19:07 Lactulose Liq PO DAILY PRN SEVERE CONSITIPATION Ondansetron HCl 4 mg 12/05/17 19:07 Zofran Inj IV.PUSH Q6H PRN NAUSEA OR VOMITING Senna/Docusate Sodium 1 tab 12/05/17 21:00 12/09/17 09:11 Polina-Colace PO 1 tab BID [facility] Administration Sennosides 17.2 mg 12/05/17 19:07 Senokot PO Q12H PRN Moderate Constipation Temazepam 15 mg 12/05/17 19:07 12/08/17 00:14 Restoril PO 15 mg HS PRN Administration INSOMNIA Objective Remarks: Left nephrostomy tube in place draining clear yellow urine. Assessment and Plan - Assessment (1) Kidney stone on left side Code(s): N20.0 - Calculus of kidney Status: Chronic (2) Pyelonephritis Code(s): N12 - Tubulo-interstitial nephritis, not specified as acute or chronic Status: Acute - Plan Urologic impression: 1. History obstructing 11 mm left ureteropelvic junction calculus status post left nephrostomy tube exchange yesterday 2. Recent development of left pyelonephritis related to a chronically indwelling left nephrostomy tube along with a likely infected calculus. 3. Clinical improvement since being admitted Recommendations: 1. Antibiotic therapy as per ID recommendations. 2. We will place patient on the OR schedule for a left extra corporeal shockwave lithotripsy next Friday. 3. Discharge home once cleared by ID.
[2017-12-09 15:02] VITALS: BP 103/73; PULSE 81; TEMP 97.7
== END 2017-12-09 17:16 | disposition home health service (06) ==
LOC: NEPE 15:27 → NEDA 20:41 → N06 21:57
PROVIDERS: ADMIT Family Medicine; ATTEND Family Medicine

== ENCOUNTER 2017-12-30 21:28 | Inpatient (IN) ==
[2017-12-30] MEDS ORDERED: ASP: Path resistant to other antimicrobials, culture proven OTHER PRN (22:43)
[2017-12-30] MEDS ORDERED: Sod Chloride 0.9% Inj 1,000 ML IV.SIG SCH (22:45)
[2017-12-30] MEDS ORDERED: Sod Chloride 0.9% Inj 400 ML IV.SIG SCH (22:45)
--- NOTE | 2017-12-30 23:01 | XR ---
EXAM DATE: 12/30/2017 10:57 PM EDT AGE/SEX: 37 years / Female INDICATIONS: Fever. CLINICAL DATA: This is the patient's initial encounter. Patient reports that signs and symptoms have been present for 2 days and indicates a pain score of 6/10. MEDICAL/SURGICAL HISTORY: . Kidney stone . Lithotripsy, nephrostomy tube COMPARISON: No prior exams available for comparison. FINDINGS: Portable AP view of the chest demonstrates a normal-sized cardiac silhouette. No effusion, consolidat ion, or pneumothorax is identified. The bones and soft tissues demonstrate no acute finding. EKG line s overlie the patient. CONCLUSION: No acute cardiopulmonary abnormality is identified. Electronically signed by: Lars Owens MD 12/30/2017 11:00 PM EDT
[2017-12-30 23:04] LABS: Baso # (Auto) 0.1 th/mm3 (0.0-0.2); Baso % (Auto) 0.5 % (0.0-2.0); Eos # (Auto) 0.2 th/mm3 (0.0-0.4); Eos % (Auto) 1.4 % (0.0-4.0); Hematocrit 34.4 % (35.0-46.0); Hemoglobin 11.2 gm/dL (11.6-15.3); Lymph # (Auto) 1.6 th/mm3 (1.0-4.8); Lymph % (Auto) 13.9 % (9.0-44.0); Mean Corpuscular HGB Conc 32.7 % (32.0-36.0); Mean Corpuscular Hemoglobin 27.1 pg (27.0-34.0); Mean Corpuscular Volume 82.9 fL (80.0-100.0); Mean Platelet Volume 8.1 fL (7.0-11.0); Mono # (Auto) 0.8 th/mm3 (0.0-0.9); Neut # (Auto) 8.6 th/mm3 (1.8-7.7); Neut % (Auto) 77.2 % (16.0-70.0); Platelet Count 257 th/mm3 (150-450); Red Blood Count 4.15 mil/mm3 (4.00-5.30); Red Cell Distribution Width 15.9 % (11.6-17.2); White Blood Count 11.2 th/mm3 (4.0-11.0)
[2017-12-30] MEDS: Sod Chloride 0.9% Inj 1,000 ML IV.SIG SCH (23:05)
--- NOTE | 2017-12-30 23:27 | ED ---
HPI General Chief Complaint: Fever Stated Complaint: Fever Time Seen by Provider: 12/30/17 22:37 Source: patient and old records reviewed Mode of arrival: ambulatory Limitations: no limitations History of Present Illness HPI Narrative: Is a 37-year-old woman presents to the emergency department complaining of fever. Couple months ago patient had pyelonephritis associated with left renal calculus and had a nephrostomy tube placed before the hospital. She was unable to follow-up with her urologist. She then had an episode of recurrent ESBL UTI and was admitted to the hospital. She then underwent ESWL with Dr. Avery Serra. She was under the impression they were going to remove her nephrostomy tube after the lithotripsy but it was not. Following the lithotripsy she passed several small stones. She has done well since then. She is due to follow-up with Dr. Varela, her urologist, in the next couple weeks. Starting yesterday she started getting recurrent high fevers, and some discomfort. No change in her urine in the past 4 days since the fever started. Related Data Previous Rx's Medication Instructions Recorded ertapenem [Invanz] 1,000 mg IV Q24H #10 ea 12/09/17 Allergies Allergy/AdvReac Type Severity Reaction Status Date / Time nitrofurantoin Allergy Swelling Verified 12/17/17 13:53 of Lip/Tongue/Throat Review of Systems ROS: all other systems reviewed are negative [facility] Medical History Medical History Kidney stone (Acute) Surgical History Surgical History H/O breast augmentation (Acute) H/O nephrostomy (Acute) Hx of abdominoplasty (Acute) Previous section (Acute) Family History Family History Other Family history normal Social History Social History Substance History: No History of Abuse Second Hand Smoke Exposure: No Smoking Status: Never smoker How Often Do You Have a Drink Containing Alcohol: Never Hx Recent Travel: No Recent Travel in [place] within the Last 8 Weeks: No Recent Out of Country Travel within the Last 8 Weeks: No Immunization History Tetanus Immunization: >5 Years Hx Influenza Vaccine This Season: No Exam Narrative Exam Narrative: GENERAL: 37-year-old woman, no acute distress. SKIN: Focused skin assessment warm/dry. HEAD: Atraumatic. Normocephalic. EYES: Pupils equal and round. No scleral icterus. No injection or drainage. ENT: No nasal bleeding or discharge. Mucous membranes pink and moist. NECK: Trachea midline. No JVD. CARDIOVASCULAR: Regular rate and rhythm. No murmur appreciated. RESPIRATORY: No accessory muscle use. Clear to auscultation. Breath sounds equal bilaterally. GASTROINTESTINAL: Nephrostomy tube in the left flank. Sites clean and dry. Mild left-sided abdominal tenderness. No rebound or guarding. MUSCULOSKELETAL: No obvious deformities. No clubbing. No cyanosis. No edema. NEUROLOGICAL: Awake and alert. No obvious cranial nerve deficits. Motor grossly within normal limits. Normal speech. Course Initial Documented Vital Signs Temperature 102.4 F H 12/30/17 22:26 Pulse Rate 118 H 12/30/17 22:26 Respiratory Rate 18 12/30/17 22:26 Blood Pressure 134/58 L 12/30/17 22:26 Pulse Oximetry 100 12/30/17 22:26 Last Documented Vital Signs Temperature 100.3 F H 12/31/17 00:20 Pulse Rate 105 H 12/31/17 00:20 Respiratory Rate 16 12/31/17 00:20 Blood Pressure 127/65 12/31/17 00:20 Pulse Oximetry 98 12/31/17 00:20 Medical Decision Making [facility] Narrative Medical decision making narrative: Is a 37-year-old male presents emergency department with fevers, nephrostomy tube in place, history of ESBL UTI. She appears septic with tachycardia and fever. We will give IV fluids. Mild pyuria and UA. Carbapenem for history of ESBL UTI. Admission. Medical Screen Exam Complete: Yes Emergency Medical Condition: Yes Lab Data Result diagrams: 12/30/17 22:55 12/30/17 22:55 Lab Results 12/30/17 12/30/17 12/30/17 Range/Units 22:55 22:55 22:55 WBC 11.2 H (4.0-11.0) th/mm3 RBC 4.15 (4.00-5.30) mil/mm3 Hgb 11.2 L (11.6-15.3) gm/dL Hct 34.4 L (35.0-46.0) % MCV 82.9 (80.0-100.0) fL MCH 27.1 (27.0-34.0) pg MCHC 32.7 (32.0-36.0) % RDW 15.9 (11.6-17.2) % Plt Count 257 (150-450) th/mm3 MPV 8.1 (7.0-11.0) fL Neut % (Auto) 77.2 H (16.0-70.0) % Lymph % (Auto) 13.9 (9.0-44.0) % [place] % (Auto) 7.0 (0.0-8.0) % Eos % (Auto) 1.4 (0.0-4.0) % Baso % (Auto) 0.5 (0.0-2.0) % Neut # (Auto) 8.6 H (1.8-7.7) th/mm3 Lymph # (Auto) 1.6 (1.0-4.8) th/mm3 [place] # (Auto) 0.8 (0.0-0.9) th/mm3 Eos # (Auto) 0.2 (0.0-0.4) th/mm3 Baso # (Auto) 0.1 (0.0-0.2) th/mm3 WBC Differential . Differential Comment Auto diff final Sodium 138 (136-145) meq/L Potassium 4.0 (3.5-5.1) meq/L Chloride 104 (98-107) meq/L Carbon Dioxide 23.9 (21.0-32.0) meq/L Anion Gap 10 (5-15) meq/L BUN 9 (7-18) mg/dL Creatinine 0.82 (0.50-1.00) mg/dL Estimated GFR 79 L (>89) mL/min Random Glucose 108 H (74-106) mg/dL Lactic Acid 1.0 (0.4-2.0) mmol/L Calcium 8.5 (8.5-10.1) mg/dL Total Bilirubin 0.4 (0.2-1.0) mg/dL AST 32 (15-37) U/L ALT 57 H (10-53) U/L Alkaline Phosphatase 82 (45-117) U/L Total Protein 8.0 (6.4-8.2) g/dL Albumin 3.6 (3.4-5.0) g/dL Urine Color (Yellw/Straw) Urine Clarity (Clear) Urine pH (5.0-8.5) Ur Specific [place] (1.002-1.035) Urine Protein (Neg-Trace) mg/dL Urine Glucose (UA) (Negative) mg/dL Urine Ketones (Negative) mg/dL Urine Occult Blood (Negative) Urine Nitrate (Negative) Urine Bilirubin (Negative) Urine Urobilinogen (Less than 2) mg/dL Ur Leukocyte Esterase (Negative) Urine RBC (0-3) /hpf Urine WBC (0-5) /hpf Ur Squamous Epith Cells (0-5) /hpf Urine Mucus (Occasional) /lpf Micro UA Comment Ur Microscopic Review Urine Culture Comments 12/30/17 Range/Units 23:00 WBC (4.0-11.0) th/mm3 RBC (4.00-5.30) mil/mm3 Hgb (11.6-15.3) gm/dL Hct (35.0-46.0) % MCV (80.0-100.0) fL MCH (27.0-34.0) pg MCHC (32.0-36.0) % RDW (11.6-17.2) % Plt Count (150-450) th/mm3 MPV (7.0-11.0) fL Neut % (Auto) (16.0-70.0) % Lymph % (Auto) (9.0-44.0) % [place] % (Auto) (0.0-8.0) % Eos % (Auto) (0.0-4.0) % Baso % (Auto) (0.0-2.0) % Neut # (Auto) (1.8-7.7) th/mm3 Lymph # (Auto) (1.0-4.8) th/mm3 [place] # (Auto) (0.0-0.9) th/mm3 Eos # (Auto) (0.0-0.4) th/mm3 Baso # (Auto) (0.0-0.2) th/mm3 WBC Differential Differential Comment Sodium (136-145) meq/L Potassium (3.5-5.1) meq/L Chloride (98-107) meq/L Carbon Dioxide (21.0-32.0) meq/L Anion Gap (5-15) meq/L BUN (7-18) mg/dL Creatinine (0.50-1.00) mg/dL Estimated GFR (>89) mL/min Random Glucose (74-106) mg/dL Lactic Acid (0.4-2.0) mmol/L Calcium (8.5-10.1) mg/dL Total Bilirubin (0.2-1.0) mg/dL AST (15-37) U/L ALT (10-53) U/L Alkaline Phosphatase (45-117) U/L Total Protein (6.4-8.2) g/dL Albumin (3.4-5.0) g/dL Urine Color Yellow (Yellw/Straw) Urine Clarity Clear (Clear) Urine pH 6.0 (5.0-8.5) Ur Specific [place] 1.008 (1.002-1.035) Urine Protein Negative (Neg-Trace) mg/dL Urine Glucose (UA) Negative (Negative) mg/dL Urine Ketones Negative (Negative) mg/dL Urine Occult Blood Moderate H (Negative) Urine Nitrate Negative (Negative) Urine Bilirubin Negative (Negative) Urine Urobilinogen Less than 2 (Less than 2) mg/dL Ur Leukocyte Esterase Negative (Negative) Urine RBC 2 (0-3) /hpf Urine WBC 8 H (0-5) /hpf Ur Squamous Epith Cells 1 (0-5) /hpf Urine Mucus Few H (Occasional) /lpf Micro UA Comment Culture not ind Ur Microscopic Review Not Reportable Urine Culture Comments Culture not ind Imaging Data Radiologist's impression: Chest X-Ray 12/30/17 22:42 CONCLUSION: No acute cardiopulmonary abnormality is identified. Discharge Plan Discharge Disposition Patient Disposition: 30 Still Patient Physicians Team ED Provider: Andrés Rush Primary Care Provider: Primary Care Padmini Vela Rxs /Orders / Referrals /Forms Prescriptions: No Action ertapenem [Invanz] 1 gram Recon Soln 1,000 mg IV Q24H Qty: 10 RF: 0 Status ED Status: With Doctor
[2017-12-30 23:28] LABS: Alanine Aminotransferase 57 U/L (10-53)
[2017-12-30 23:30] LABS: Alkaline Phosphatase 82 U/L (45-117)
[2017-12-30 23:34] LABS: Albumin 3.6 g/dL (3.4-5.0); Anion Gap 10 meq/L (5-15); Aspartate Aminotransferase 32 U/L (15-37); Blood Urea Nitrogen 9 mg/dL (7-18); Calcium 8.5 mg/dL (8.5-10.1); Carbon Dioxide 23.9 meq/L (21.0-32.0); Chloride 104 meq/L (98-107); Glomerular Filtration Rate 79 mL/min (>89); Glucose,Random 108 mg/dL (74-106); Sodium 138 meq/L (136-145)
[2017-12-31 00:02] LABS: Bilirubin,Urine Negative (Negative); Clarity,Urine Clear (Clear); Color,Urine Yellow (Yellw/Straw); Glucose,Urine (UA) Negative (Negative); Leukocyte Esterase,Urine Negative (Negative); Mucus,Urine Few /lpf (Occasional); Nitrite,Urine Negative (Negative); Specific Gravity,Urine 1.008 (1.002-1.035); Squamous Epithelial Cell,Urine 1 /hpf (0-5)
[2017-12-31] MEDS ORDERED: Morphine Inj 4 MG/ML Vial IV.PUSH ONE (00:11)
[2017-12-31] MEDS ORDERED: Bisacodyl 10 MG Supp RECTAL PRN (01:27)
[2017-12-31] MEDS ORDERED: Acetaminophen 325 MG Tablet PO PRN (01:27)
--- NOTE | 2017-12-31 01:34 | P.HP ---
History of Present Illness Service: [facility] Primary Care Physician: No Primary Care Physician History of Present Illness: 37-year-old female with past medical history significant for previous ESBL UTI status post nephrostomy tube presents to the emergency department for evaluation of left-sided flank pain and fevers. The patient reports that she has had fevers, chills and left-sided flank pain for the past several days. She states this feels the same as her previous urinary tract infections. She denies any chest pain or shortness of breath. No abdominal pain. No nausea/ vomiting/diarrhea. Review of Systems All other systems reviewed negative except as stated in HPI PMFSH - History History Provided By: Patient - Medical History Medical History: Medical History (Last Reviewed 12/30/17 @ 23:26 by Andrés Rush MD) Kidney stone - Surgical History Surgical History: Surgical History (Last Reviewed 12/30/17 @ 23:26 by Andrés Rush MD) H/O breast augmentation H/O nephrostomy Hx of abdominoplasty Previous section - Family History Family History: Family History (Last Reviewed 12/30/17 @ 23:26 by Andrés Rush MD) Other Family history normal - Tobacco History Second Hand Smoke Exposure: No Smoking Status: Never smoker - Alcohol History How Often Do You Have a Drink Containing Alcohol: Never - Substance Use History Substance History: No History of Abuse - Travel History History of Recent Travel: No Recent Travel in the [place] Within the Last 8 Weeks: No Recent Travel Out of the Country Within the Last 8 Weeks: No - Immunization History Tetanus Immunization: >5 Years Hx Influenza Vaccine This Season: No Medications and Allergies Active Medications: Active Medications Sodium Chloride (Ns Inj) 1,000 mls @ 0 mls/hr IV.SIG .Q0M [facility] Last Admin: 12/30/17 23:05 Dose: 999 mls/hr Sodium Chloride (Ns Inj) 1,000 mls @ 0 mls/hr IV.SIG .Q0M [facility] Last Admin: 12/30/17 23:06 Dose: 999 mls/hr Sodium Chloride (Ns Inj) 400 mls @ 0 mls/hr IV.SIG .Q0M [facility] Last Admin: 12/30/17 23:05 Dose: 999 mls/hr Miscellaneous Medication (Asp Crit: Path Resist To Other, Cult Proven) 1 each OTHER UNSCH PRN PRN Reason: PHARMACY DOCUMENTATION Stop: 12/31/17 22:42 Allergies Allergy/AdvReac Type Severity Reaction Status Date / Time nitrofurantoin Allergy Swelling Verified 12/17/17 13:53 of Lip/Tongue/Throat Exam Vital signs: Vital Signs 12/30/17 22:26 12/30/17 22:46 12/31/17 00:20 Temperature 102.4 F H 100.3 F H Pulse Rate 118 H 120 H 105 H Respiratory Rate 18 16 Blood Pressure 134/58 L 127/65 Pulse Oximetry 100 99 98 Intake & Output 12/30/17 12/30/17 12/31/17 06:59 18:59 06:59 Weight 71.214 kg Narrative: Gen.: No acute distress Head: Normocephalic. Atraumatic. EENT: Pupils equal round and reactive to light. Nose without drainage. Airway intact. Throat without injection. Cardiovascular: Regular rate and rhythm. No murmurs, rubs or gallops. Respiratory: Lungs clear to auscultation bilaterally. No wheezes or rhonchi. Abdomen: Soft, nontender, nondistended. No peritoneal signs. : Nephrostomy tube in place draining straw-colored clear urine. Left-sided CVA tenderness. Musculoskeletal: No gross deformities. No edema. Skin: No obvious rashes or erythema. Neuro: Sensory and motor grossly intact. Cranial nerves II through XII grossly intact. Results - Labs CBC & Chem 7: 12/30/17 22:55 12/30/17 22:55 Labs: Laboratory Results - last 24 hr 12/30/17 12/30/17 12/30/17 22:55 22:55 22:55 WBC 11.2 H RBC 4.15 Hgb 11.2 L Hct 34.4 L MCV 82.9 MCH 27.1 MCHC 32.7 RDW 15.9 Plt Count 257 MPV 8.1 Neut % (Auto) 77.2 H Lymph % (Auto) 13.9 [place] % (Auto) 7.0 Eos % (Auto) 1.4 Baso % (Auto) 0.5 Neut # (Auto) 8.6 H Lymph # (Auto) 1.6 [place] # (Auto) 0.8 Eos # (Auto) 0.2 Baso # (Auto) 0.1 WBC Differential . Differential Comment Auto diff final Sodium 138 Potassium 4.0 Chloride 104 Carbon Dioxide 23.9 Anion Gap 10 BUN 9 Creatinine 0.82 Estimated GFR 79 L Random Glucose 108 H Lactic Acid 1.0 Calcium 8.5 Total Bilirubin 0.4 AST 32 ALT 57 H Alkaline Phosphatase 82 Total Protein 8.0 Albumin 3.6 Urine Color Urine Clarity Urine pH Ur Specific [place] Urine Protein Urine Glucose (UA) Urine Ketones Urine Occult Blood Urine Nitrate Urine Bilirubin Urine Urobilinogen Ur Leukocyte Esterase Urine RBC Urine WBC Ur Squamous Epith Cells Urine Mucus Micro UA Comment Ur Microscopic Review Urine Culture Comments 12/30/17 23:00 WBC RBC Hgb Hct MCV MCH MCHC RDW Plt Count MPV Neut % (Auto) Lymph % (Auto) [place] % (Auto) Eos % (Auto) Baso % (Auto) Neut # (Auto) Lymph # (Auto) [place] # (Auto) Eos # (Auto) Baso # (Auto) WBC Differential Differential Comment Sodium Potassium Chloride Carbon Dioxide Anion Gap BUN Creatinine Estimated GFR Random Glucose Lactic Acid Calcium Total Bilirubin AST ALT Alkaline Phosphatase Total Protein Albumin Urine Color Yellow Urine Clarity Clear Urine pH 6.[address] [place] 1.008 Urine Protein Negative Urine Glucose (UA) Negative Urine Ketones Negative Urine Occult Blood Moderate H Urine Nitrate Negative Urine Bilirubin Negative Urine Urobilinogen Less than 2 Ur Leukocyte Esterase Negative Urine RBC 2 Urine WBC 8 H Ur Squamous Epith Cells 1 Urine Mucus Few H Micro UA Comment Culture not ind Ur Microscopic Review Not Reportable Urine Culture Comments Culture not ind - Imaging Impressions Chest X-Ray 12/30/17 22:42 CONCLUSION: No acute cardiopulmonary abnormality is identified. Caprini VTE Risk Assessment Caprini VTE Risk Assessment: No/Low Risk (score <= 1) Caprini Risk Assessment Model: Point Value = 1 Point Value = 2 Point Value = 3 Point Value = 5 Age 41-60 Minor surgery BMI > 25 kg/m2 Swollen legs Varicose veins or History of unexplained or recurrent spontaneous Oral contraceptives or hormone replacement Sepsis (< 1 month) Serious lung disease, including pneumonia (< 1 month) Abnormal pulmonary function Acute myocardial infarction Congestive heart failure (< 1 month) History of inflammatory bowel disease Medical patient at bed rest Age 61-74 Arthroscopic surgery Major open surgery (> 45 min) Laparoscopic surgery (> 45 min) Malignancy Confined to bed (> 72 hours) Immobilizing plaster cast Central venous access Age >= 75 History of VTE Family history of VTE Factor V Leiden Prothrombin [id number] Lupus anticoagulant Anticardiolipin antibodies Elevated serum homocysteine Heparin-induced thrombocytopenia Other congenital or acquired thrombophilia Stroke (< 1 month) Elective arthroplasty Hip, pelvis, or leg fracture Acute spinal cord injury (< 1 month) Prophylaxis Regimen: Total Risk Factor Score Risk Level Prophylaxis Regimen 0-1 Low Early ambulation 2 Moderate Order ONE of the following: *Sequential Compression Device (SCD) *Heparin 5000 units SQ BID 3-4 Higher Order ONE of the following medications: *Heparin 5000 units SQ TID *Enoxaparin/Lovenox 40 mg SQ daily (WT < 150 kg, CrCl > 30 mL/min) *Enoxaparin/Lovenox 30 mg SQ daily (WT < 150 kg, CrCl > 10-29 mL/min) *Enoxaparin/Lovenox 30 mg SQ BID (WT < 150 kg, CrCl > 30 mL/min) AND/OR *Sequential Compression Device (SCD) 5 or more Highest Order ONE of the following medications: *Heparin 5000 units SQ TID (Preferred with Epidurals) *Enoxaparin/Lovenox 40 mg SQ daily (WT < 150 kg, CrCl > 30 mL/min) *Enoxaparin/Lovenox 30 mg SQ daily (WT < 150 kg, CrCl > 10-29 mL/min) *Enoxaparin/Lovenox 30 mg SQ BID (WT < 150 kg, CrCl > 30 mL/min) AND *Sequential Compression Device (SCD) Assessment and Plan - Plan Assessment/plan: 1. Fever/flank pain Status post ESBL UTI and nephrostomy tube Initial UA clean catch, no obvious signs of infection Repeat UA and urine culture from nephrostomy bag Status post ertapenem in the ED Awaiting results of repeat UA and urine culture, if signs of infection will continue ertapenem and consider infectious disease consult FEN Regular diet Electrolytes: Monitor and replete as needed NS at 100 cc/hour
[2017-12-31 02:52] LABS: Bacteria,Urine Rare /hpf; Bilirubin,Urine Negative (Negative); Clarity,Urine Clear (Clear); Color,Urine Straw (Yellw/Straw); Glucose,Urine (UA) Negative (Negative); Hyaline Casts,Urine 1 /lpf (0-3); Leukocyte Esterase,Urine Moderate (Negative); Nitrite,Urine Negative (Negative); Specific Gravity,Urine 1.005 (1.002-1.035)
[2017-12-31] MEDS: Sod Chloride 0.9% Inj 1,000 ML IV.CONT SCH ×3 (04:03→21:46)
[2017-12-31] MEDS: Morphine Inj 4 MG/ML Vial IV.PUSH PRN ×5 (04:55→21:37)
[2017-12-31] MEDS: Senna/Docusate Sodium 8.6/50 MG Tablet PO SCH ×2 (08:43→21:44)
--- NOTE | 2017-12-31 09:49 | ECG ---
Date Performed: 12/30/2017 Time Performed: 22:58:21 PTAGE: 37 years EKG: SINUS TACHYCARDIA ABNORMAL RHYTHM ECG NO PREVIOUS TRACING DOCTOR: Andrés Hwang Interpretating Date/Time 12/31/2017 09:48:46
--- NOTE | 2017-12-31 12:24 | P.CONURO ---
History of Present Illness Service: urology Consult date: 12/31/17 Requesting Physician: Venessa Villalba Reason for Consult: Urosepsis Primary Care Provider: No Primary Care Physician Family Provider: No Primary Care Physician Chief Complaint: Left flank pain, fever History of Present Illness: 37-year-old female with past medical history significant for previous ESBL UTI status post left nephrostomy tube placement in October due to 11mm obstructing stone. She still has left PCN in place. On 12/17/ Dr Serra performed Left ESWL and recommended f/u in 2 weeks with KUB She presents to the emergency department today for evaluation of left-sided flank pain and fevers up to 103. The patient reports that she has had fevers, chills and left-sided flank pain for the past several days. She states this feels the same as her previous urinary tract infections. She denies any chest pain or shortness of breath. No abdominal pain. No nausea/vomiting/diarrhea. Urology consulted. She currently has no fever. Her WBCs is 11.2. Cr is normal. Preliminary BC is no growth. UC is pending Review of Systems All other systems reviewed negative except as stated in HPI PMFSH - History History Provided By: Patient - Medical History Medical History: Medical History (Last Reviewed 12/30/17 @ 23:26 by Andrés Rush MD) Kidney stone - Surgical History Surgical History: Surgical History (Last Reviewed 12/30/17 @ 23:26 by Andrés Rush MD) H/O breast augmentation H/O nephrostomy Hx of abdominoplasty Previous section - Family History Family History: Family History (Last Reviewed 12/30/17 @ 23:26 by Andrés Rush MD) Other Family history normal - Tobacco History Second Hand Smoke Exposure: No Smoking Status: Never smoker - Alcohol History How Often Do You Have a Drink Containing Alcohol: 2 to 4 times a month - Substance Use History Substance History: No History of Abuse - Travel History History of Recent Travel: No Recent Travel in the [place] Within the Last 8 Weeks: No Recent Travel Out of the Country Within the Last 8 Weeks: No - Immunization History Tetanus Immunization: >5 Years Hx Influenza Vaccine This Season: No Medications and Allergies Active Medications: Active Medications Acetaminophen (Tylenol) 650 mg PO Q4H PRN PRN Reason: Temp > 100.4 Al Hydroxide/Mg Hydroxide (Milk Of Magnesia Liq) 30 ml PO Q12H PRN PRN Reason: Mild Constipation Bisacodyl (Dulcolax Supp) 10 mg RECTAL DAILY PRN PRN Reason: SEVERE CONSITIPATION Sodium Chloride (Ns Inj) 1,000 mls @ 0 mls/hr IV.SIG .Q0M [facility] Last Infusion: 12/31/17 04:18 Dose: 0 mls/hr Sodium Chloride (Ns Inj) 1,000 mls @ 0 mls/hr IV.SIG .Q0M [facility] Last Infusion: 12/31/17 04:19 Dose: 0 mls/hr Sodium Chloride (Ns Inj) 400 mls @ 0 mls/hr IV.SIG .Q0M [facility] Last Infusion: 12/31/17 04:19 Dose: 0 mls/hr Sodium Chloride (Ns Inj) 1,000 mls @ 100 mls/hr IV.CONT .Q10H [facility] Last Admin: 12/31/17 04:03 Dose: 100 mls/hr Lactulose (Lactulose Liq) 30 ml PO DAILY PRN PRN Reason: SEVERE CONSITIPATION Miscellaneous Medication (Asp Crit: Path Resist To Other, Cult Proven) 1 each OTHER UNSCH PRN PRN Reason: PHARMACY DOCUMENTATION Stop: 12/31/17 22:42 Morphine Sulfate (Morphine Inj) 4 mg IV.PUSH Q4H PRN PRN Reason: pain 6-10 Last Admin: 12/31/17 08:42 Dose: 4 mg Ondansetron HCl (Zofran Inj) 4 mg IV.PUSH Q6H PRN PRN Reason: NAUSEA OR VOMITING Senna/Docusate Sodium (Polina-Colace) 1 tab PO BID [facility] Last Admin: 12/31/17 08:43 Dose: 1 tab Sennosides (Senokot) 17.2 mg PO Q12H PRN PRN Reason: Moderate Constipation Allergies Allergy/AdvReac Type Severity Reaction Status Date / Time nitrofurantoin Allergy Swelling Verified 12/17/17 13:53 of Lip/Tongue/Throat Physical Exam Vital Signs - 24 hr 12/30/17 22:26 12/30/17 22:46 12/31/17 00:20 Temperature 102.4 F H 100.3 F H Pulse Rate 118 H 120 H 105 H Respiratory Rate 18 16 Blood Pressure 134/58 L 127/65 Pulse Oximetry 100 99 98 12/31/17 02:14 12/31/17 04:48 12/31/17 04:54 Temperature 100.3 F H 98.6 F Pulse Rate 95 H 90 Respiratory Rate 18 18 16 Blood Pressure 123/71 110/61 Pulse Oximetry 100 98 12/31/17 07:48 Temperature 98.2 F Pulse Rate 84 Respiratory Rate 14 Blood Pressure 116/71 Pulse Oximetry 98 Physical Exam: NAD RRR Clear Lungs Abd soft NT Mild Left CVAT Left PCN is in place. Drains clear urine Laboratory Results - last 24 hr 12/30/17 12/30/17 12/30/17 22:55 22:55 22:55 WBC 11.2 H RBC 4.15 Hgb 11.2 L Hct 34.4 L MCV 82.9 MCH 27.1 MCHC 32.7 RDW 15.9 Plt Count 257 MPV 8.1 Neut % (Auto) 77.2 H Lymph % (Auto) 13.9 [place] % (Auto) 7.0 Eos % (Auto) 1.4 Baso % (Auto) 0.5 Neut # (Auto) 8.6 H Lymph # (Auto) 1.6 [place] # (Auto) 0.8 Eos # (Auto) 0.2 Baso # (Auto) 0.1 WBC Differential . Differential Comment Auto diff final Sodium 138 Potassium 4.0 Chloride 104 Carbon Dioxide 23.9 Anion Gap 10 BUN 9 Creatinine 0.82 Estimated GFR 79 L Random Glucose 108 H Lactic Acid 1.0 Calcium 8.5 Total Bilirubin 0.4 AST 32 ALT 57 H Alkaline Phosphatase 82 Total Protein 8.0 Albumin 3.6 Urine Color Urine Clarity Urine pH Ur Specific [place] Urine Protein Urine Glucose (UA) Urine Ketones Urine Occult Blood Urine Nitrate Urine Bilirubin Urine Urobilinogen Ur Leukocyte Esterase Urine RBC Urine WBC Ur Squamous Epith Cells Urine Bacteria Hyaline Casts Urine Mucus Micro UA Comment Ur Microscopic Review Urine Culture Comments 12/30/17 12/31/17 23:00 02:30 WBC RBC Hgb Hct MCV MCH MCHC RDW Plt Count MPV Neut % (Auto) Lymph % (Auto) [place] % (Auto) Eos % (Auto) Baso % (Auto) Neut # (Auto) Lymph # (Auto) [place] # (Auto) Eos # (Auto) Baso # (Auto) WBC Differential Differential Comment Sodium Potassium Chloride Carbon Dioxide Anion Gap BUN Creatinine Estimated GFR Random Glucose Lactic Acid Calcium Total Bilirubin AST ALT Alkaline Phosphatase Total Protein Albumin Urine Color Yellow Straw Urine Clarity Clear Clear Urine pH 6.0 7.0 Ur Specific [place] 1.008 1.005 Urine Protein Negative Negative Urine Glucose (UA) Negative Negative Urine Ketones Negative Negative Urine Occult Blood Moderate H Small H Urine Nitrate Negative Negative Urine Bilirubin Negative Negative Urine Urobilinogen Less than 2 Less than 2 Ur Leukocyte Esterase Negative Moderate H Urine RBC 2 3 Urine WBC 8 H 9 H Ur Squamous Epith Cells 1 Urine Bacteria Rare H Hyaline Casts 1 Urine Mucus Few H Micro UA Comment Culture not ind Ur Microscopic Review Not Reportable Not Reportable Urine Culture Comments Culture not ind Microbiology 12/30/17 22:55 Aerobic Blood Culture - Preliminary Blood - Peripheral No growth in 1 day Anaerobic Blood Culture - Preliminary No growth in 1 day 12/30/17 22:50 Aerobic Blood Culture - Preliminary Blood - Peripheral No growth in 1 day Anaerobic Blood Culture - Preliminary No growth in 1 day Result Diagrams: 12/30/17 22:55 12/30/17 22:55 Imaging: ITS Impressions Chest X-Ray 12/30/17 22:42 CONCLUSION: No acute cardiopulmonary abnormality is identified. Assessment and Plan - Plan 37y.o F with h/o UTIs and stones S/p Left PCN placement 2 mo/a, chnaged once s/p Lt ESWL on 12/17/[address] Serra Currently admitted for possible urosepsis - No acute intervention needed - Continue care as per primary team. IV fluids and antbx - Follow ID recommendations for treatment of current condition - Follow up on final BC and UC to adjust antbx if needed - CT scan stone protocol to evaluate for stone / fragments post ESWL - Pt to f/u with Dr Serra / Pita after d/c on Friday for further management and possible removal of her PCN Discussed Condition With: Dr Carmella SHORE attending
--- NOTE | 2017-12-31 13:19 | P.PN ---
Subjective Interval history: Follow-up for urosepsis: c/o left mild flank pain, no fever overnight, feeling poorly, no cp, no sob, completed abx for x 2 weeks and started spiking fevers over weekend up to 103. Pt. is supposed to have f/u CT abd 01/09 and possibly have nephrostomy tube removed. Patient has been at bedside with multiple questions, and concerns about his 's condition. Attempted to answer all. Updated on plan of care Physical Exam Vital signs: Vital Signs 12/30/17 22:26 12/30/17 22:46 12/31/17 00:20 Temperature 102.4 F H 100.3 F H Pulse Rate 118 H 120 H 105 H Respiratory Rate 18 16 Blood Pressure 134/58 L 127/65 Pulse Oximetry 100 99 98 12/31/17 02:14 12/31/17 04:48 12/31/17 04:54 Temperature 100.3 F H 98.6 F Pulse Rate 95 H 90 Respiratory Rate 18 18 16 Blood Pressure 123/71 110/61 Pulse Oximetry 100 98 12/31/17 07:48 12/31/17 12:00 Temperature 98.2 F 98.7 F Pulse Rate 84 91 H Respiratory Rate 14 20 Blood Pressure 116/71 136/77 Pulse Oximetry 98 100 Intake & Output 12/30/17 12/31/17 12/31/17 18:59 06:59 18:59 Weight 71 kg Other: Date of Last Bowel Movement 12/30/17 Weight On Admission 71.214 kg Narrative: GENERAL: Well-nourished, well-developed patient in no apparent distress. SKIN: Warm and dry. HEAD: Atraumatic. Normocephalic. EYES: Pupils equal and round. No scleral icterus. No injection or drainage. ENT: No nasal bleeding or discharge. Mucous membranes pink and moist. NECK: Trachea midline. No JVD. CARDIOVASCULAR: Regular rate and rhythm. RESPIRATORY: No accessory muscle use. Clear to auscultation. Breath sounds equal bilaterally. GASTROINTESTINAL: Abdomen soft, non-tender, nondistended. Hepatic and splenic margins not palpable. Left flank with nephrostomy tube in place, clear urine noted. No tenderness on palpation. MUSCULOSKELETAL: Extremities without clubbing, cyanosis, or edema. No obvious deformities. NEUROLOGICAL: Awake and alert. No obvious cranial nerve deficits. Motor grossly within normal limits. Five out of 5 muscle strength in the arms and legs. Normal speech. PSYCHIATRIC: Appropriate mood and affect; insight and judgment normal. Results - Labs CBC & Chem 7: 12/30/17 22:55 12/30/17 22:55 Laboratory Results - last 24 hr 12/30/17 12/30/17 12/30/17 22:55 22:55 22:55 WBC 11.2 H RBC 4.15 Hgb 11.2 L Hct 34.4 L MCV 82.9 MCH 27.1 MCHC 32.7 RDW 15.9 Plt Count 257 MPV 8.1 Neut % (Auto) 77.2 H Lymph % (Auto) 13.9 [place] % (Auto) 7.0 Eos % (Auto) 1.4 Baso % (Auto) 0.5 Neut # (Auto) 8.6 H Lymph # (Auto) 1.6 [place] # (Auto) 0.8 Eos # (Auto) 0.2 Baso # (Auto) 0.1 WBC Differential . Differential Comment Auto diff final Sodium 138 Potassium 4.0 Chloride 104 Carbon Dioxide 23.9 Anion Gap 10 BUN 9 Creatinine 0.82 Estimated GFR 79 L Random Glucose 108 H Lactic Acid 1.0 Calcium 8.5 Total Bilirubin 0.4 AST 32 ALT 57 H Alkaline Phosphatase 82 Total Protein 8.0 Albumin 3.6 Urine Color Urine Clarity Urine pH Ur Specific [place] Urine Protein Urine Glucose (UA) Urine Ketones Urine Occult Blood Urine Nitrate Urine Bilirubin Urine Urobilinogen Ur Leukocyte Esterase Urine RBC Urine WBC Ur Squamous Epith Cells Urine Bacteria Hyaline Casts Urine Mucus Micro UA Comment Ur Microscopic Review Urine Culture Comments 12/30/17 12/31/17 23:00 02:30 WBC RBC Hgb Hct MCV MCH MCHC RDW Plt Count MPV Neut % (Auto) Lymph % (Auto) [place] % (Auto) Eos % (Auto) Baso % (Auto) Neut # (Auto) Lymph # (Auto) [place] # (Auto) Eos # (Auto) Baso # (Auto) WBC Differential Differential Comment Sodium Potassium Chloride Carbon Dioxide Anion Gap BUN Creatinine Estimated GFR Random Glucose Lactic Acid Calcium Total Bilirubin AST ALT Alkaline Phosphatase Total Protein Albumin Urine Color Yellow Straw Urine Clarity Clear Clear Urine pH 6.0 7.0 Ur Specific [place] 1.008 1.005 Urine Protein Negative Negative Urine Glucose (UA) Negative Negative Urine Ketones Negative Negative Urine Occult Blood Moderate H Small H Urine Nitrate Negative Negative Urine Bilirubin Negative Negative Urine Urobilinogen Less than 2 Less than 2 Ur Leukocyte Esterase Negative Moderate H Urine RBC 2 3 Urine WBC 8 H 9 H Ur Squamous Epith Cells 1 Urine Bacteria Rare H Hyaline Casts 1 Urine Mucus Few H Micro UA Comment Culture not ind Ur Microscopic Review Not Reportable Not Reportable Urine Culture Comments Culture not ind Microbiology 12/30/17 22:55 Blood - Peripheral Aerobic Blood Culture - Preliminary No growth in 1 day 12/30/17 22:55 Blood - Peripheral Anaerobic Blood Culture - Preliminary No growth in 1 day 12/30/17 22:50 Blood - Peripheral Aerobic Blood Culture - Preliminary No growth in 1 day 12/30/17 22:50 Blood - Peripheral Anaerobic Blood Culture - Preliminary No growth in 1 day - Imaging Impressions Chest X-Ray 12/30/17 22:42 CONCLUSION: No acute cardiopulmonary abnormality is identified. Assessment and Plan - Assessment (1) Sepsis Code(s): A41.9 - Sepsis, unspecified organism Status: Resolved (2) UTI (urinary tract infection) Code(s): N39.0 - Urinary tract infection, site not specified Status: Acute - Plan Assessment/Plan 37-year-old female with past medical history significant for previous ESBL UTI status post nephrostomy tube presents to the emergency department for evaluation of left-sided flank pain and fevers. Fever up to 103. Sepsis, febrile, tachycardia. Status post ESBL UTI -completed 2 weeks of abx. Initial UA clean catch, no obvious signs of infection -Repeat UA and urine culture from nephrostomy bag, mod leuk esterase,rare bacteria -Status post ertapenem in the ED, will continue ertapenem for now. Will follow cultures closely. -consult ID, d/w Dr. Sweeney, recommends US of right arm as she had PICC -US right arm -Continue IV fluids Continue with pain management -replace electrolytes as needed S/p Left PCN placement for stones S/P left ESWL on 12/[address] Serra -consulted urology, d/w PA, will order CT abd/pelvis with stone protocol Repeat labs in the morning Discussed with patient and at length, multiple questions asked and answered. Discussed with Dr. Sweeney and urology PA Discussed with RN and case management Patient meets inpatient criteria secondary to sepsis, estimated length of stay 2 -3 days. Requires admission for IV fluids, IV antibiotics, consultation with urology and infectious disease. (1) Sepsis Qualifiers: Sepsis type: sepsis due to unspecified organism Qualified Code(s): A41.9 - Sepsis, unspecified organism (2) UTI (urinary tract infection) Qualifiers: Urinary tract infection type: acute pyelonephritis Qualified Code(s): N10 - Acute pyelonephritis
--- NOTE | 2017-12-31 14:47 | US ---
EXAM DATE: 12/31/2017 2:44 PM EDT AGE/SEX: 37 years / Female INDICATIONS: Deep vein thrombosis. CLINICAL DATA: This is the patient's initial encounter. Patient reports that signs and symptoms have been present for 1 day and indicates a pain score of 0/10. MEDICAL/SURGICAL HISTORY: . Kidney stones. Kidney infection. section. COMPARISON: No prior exams available for comparison. FINDINGS: The vessels are compressible and augmentation response is documented. No filling defects a re seen. The flow is phasic with respiration. Other: None. CONCLUSION: 1. The study is negative for upper extremity deep venous thrombosis. Electronically signed by: Nghia Mehta MD 12/31/2017 2:46 PM EDT
--- NOTE | 2017-12-31 14:56 | P.CONID ---
History of Present Illness Service: Infectious Disease Consult date: 12/31/17 Requesting Physician: Venessa Villalba Reason for Consult: Evaluation and Mment of fever in pt recently treated for ESBL UTI using PIC Primary Care Provider: No Primary Care Physician Family Provider: No Primary Care Physician Chief Complaint: Left flank pain, fever History of Present Illness: is a 37-year-old female with past medical history significant for previous ESBL UTIs status post nephrostomy tube placement. Patient reportedly underwent lithotripsy by Dr. Serra recently. Patient had a PICC line in place and was receiving antibiotics until 2-3 days prior to admission. PICC line was removed after completion of antibiotic therapy. Patient now presents to the emergency department for evaluation of fevers and left-sided flank pain. She denies any chest pain or shortness of breath. No abdominal pain. No nausea/vomiting/diarrhea. Infectious diseases consulted for management of recurrent fevers and UTI the patient was recently treated for ESBL UTI. Review of Systems All other systems reviewed negative except as stated in HPI PMFSH - History History Provided By: Patient - Medical History Medical History: Medical History (Last Reviewed 12/30/17 @ 23:26 by Andrés Rush MD) Kidney stone - Surgical History Surgical History: Surgical History (Last Reviewed 12/30/17 @ 23:26 by Andrés Rush MD) H/O breast augmentation H/O nephrostomy Hx of abdominoplasty Previous section - Family History Family History: Family History (Last Reviewed 12/30/17 @ 23:26 by Andrés Rsuh MD) Other Family history normal - Tobacco History Second Hand Smoke Exposure: No Smoking Status: Never smoker - Alcohol History How Often Do You Have a Drink Containing Alcohol: 2 to 4 times a month - Substance Use History Substance History: No History of Abuse - Travel History History of Recent Travel: No Recent Travel in the [place] Within the Last 8 Weeks: No Recent Travel Out of the Country Within the Last 8 Weeks: No - Immunization History Tetanus Immunization: >5 Years Hx Influenza Vaccine This Season: No Medications and Allergies Active Medications: Active Medications Acetaminophen (Tylenol) 650 mg PO Q4H PRN PRN Reason: Temp > 100.4 Al Hydroxide/Mg Hydroxide (Milk Of Magnesia Liq) 30 ml PO Q12H PRN PRN Reason: Mild Constipation Bisacodyl (Dulcolax Supp) 10 mg RECTAL DAILY PRN PRN Reason: SEVERE CONSITIPATION Ertapenem (Invanz Inj) 1,000 mg IV.SIG Q24H [facility] Sodium Chloride (Ns Inj) 1,000 mls @ 0 mls/hr IV.SIG .Q0M [facility] Last Infusion: 12/31/17 04:18 Dose: 0 mls/hr Sodium Chloride (Ns Inj) 1,000 mls @ 0 mls/hr IV.SIG .Q0M PR[facility]UL Last Infusion: 12/31/17 04:19 Dose: 0 mls/hr Sodium Chloride (Ns Inj) 400 mls @ 0 mls/hr IV.SIG .Q0M PRAFUL Last Infusion: 12/31/17 04:19 Dose: 0 mls/hr Sodium Chloride (Ns Inj) 1,000 mls @ 100 mls/hr IV.CONT .Q10H [facility] Last Admin: 12/31/17 04:03 Dose: 100 mls/hr Ertapenem 1,000 mg/ Sodium (Chloride) 100 mls @ 100 mls/hr IV.SIG Q24H [facility]UL Lactulose (Lactulose Liq) 30 ml PO DAILY PRN PRN Reason: SEVERE CONSITIPATION Miscellaneous Medication (Asp Crit: Path Resist To Other, Cult Proven) 1 each OTHER UNSCH PRN PRN Reason: PHARMACY DOCUMENTATION Stop: 12/31/17 22:42 Morphine Sulfate (Morphine Inj) 4 mg IV.PUSH Q4H PRN PRN Reason: pain 6-10 Last Admin: 12/31/17 12:32 Dose: 4 mg Ondansetron HCl (Zofran Inj) 4 mg IV.PUSH Q6H PRN PRN Reason: NAUSEA OR VOMITING Senna/Docusate Sodium (Polina-Colace) 1 tab PO BID [facility] Last Admin: 12/31/17 08:43 Dose: 1 tab Sennosides (Senokot) 17.2 mg PO Q12H PRN PRN Reason: Moderate Constipation Allergies Allergy/AdvReac Type Severity Reaction Status Date / Time nitrofurantoin Allergy Swelling Verified 12/17/17 13:53 of Lip/Tongue/Throat Exam Vital signs: Vital Signs 12/30/17 22:26 12/30/17 22:46 12/31/17 00:20 Temperature 102.4 F H 100.3 F H Pulse Rate 118 H 120 H 105 H Respiratory Rate 18 16 Blood Pressure 134/58 L 127/65 Pulse Oximetry 100 99 98 12/31/17 02:14 12/31/17 04:48 12/31/17 04:54 Temperature 100.3 F H 98.6 F Pulse Rate 95 H 90 Respiratory Rate 18 18 16 Blood Pressure 123/71 110/61 Pulse Oximetry 100 98 12/31/17 07:48 12/31/17 12:00 Temperature 98.2 F 98.7 F Pulse Rate 84 91 H Respiratory Rate 14 20 Blood Pressure 116/71 136/77 Pulse Oximetry 98 100 Intake & Output 12/30/17 12/31/17 12/31/17 18:59 06:59 18:59 Weight 71 kg Other: Date of Last Bowel Movement 12/30/17 Weight On Admission 71.214 kg Narrative: GENERAL: Well-nourished well-developed, not in acute distress SKIN: Cool and dry, no generalized rash HEAD: Atraumatic. Normocephalic. No temporal or scalp tenderness. EYES: Pupils equal round and reactive. Scleral icterus. No injection or drainage. No petechia ENT: Nothing abnormal detected NECK: Trachea midline. Supple, nontender, no meningeal signs. CARDIOVASCULAR: HS audible. RESPIRATORY: Clear to auscultation bilaterally. GASTROINTESTINAL: Abdomen soft nontender. MUSCULOSKELETAL: Extremities without clubbing, cyanosis. NEUROLOGICAL: Alert oriented 3. Nonfocal. Psych cooperative IV line sites ok. Results - Labs CBC & Chem 7: 12/30/17 22:55 12/30/17 22:55 Labs: Laboratory Results - last 24 hr 12/30/17 12/30/17 12/30/17 22:55 22:55 22:55 WBC 11.2 H RBC 4.15 Hgb 11.2 L Hct 34.4 L MCV 82.9 MCH 27.1 MCHC 32.7 RDW 15.9 Plt Count 257 MPV 8.1 Neut % (Auto) 77.2 H Lymph % (Auto) 13.9 [place] % (Auto) 7.0 Eos % (Auto) 1.4 Baso % (Auto) 0.5 Neut # (Auto) 8.6 H Lymph # (Auto) 1.6 [place] # (Auto) 0.8 Eos # (Auto) 0.2 Baso # (Auto) 0.1 WBC Differential . Differential Comment Auto diff final Sodium 138 Potassium 4.0 Chloride 104 Carbon Dioxide 23.9 Anion Gap 10 BUN 9 Creatinine 0.82 Estimated GFR 79 L Random Glucose 108 H Lactic Acid 1.0 Calcium 8.5 Total Bilirubin 0.4 AST 32 ALT 57 H Alkaline Phosphatase 82 Total Protein 8.0 Albumin 3.6 Urine Color Urine Clarity Urine pH Ur Specific [place] Urine Protein Urine Glucose (UA) Urine Ketones Urine Occult Blood Urine Nitrate Urine Bilirubin Urine Urobilinogen Ur Leukocyte Esterase Urine RBC Urine WBC Ur Squamous Epith Cells Urine Bacteria Hyaline Casts Urine Mucus Micro UA Comment Ur Microscopic Review Urine Culture Comments 12/30/17 12/31/17 23:00 02:30 WBC RBC Hgb Hct MCV MCH MCHC RDW Plt Count MPV Neut % (Auto) Lymph % (Auto) [place] % (Auto) Eos % (Auto) Baso % (Auto) Neut # (Auto) Lymph # (Auto) [place] # (Auto) Eos # (Auto) Baso # (Auto) WBC Differential Differential Comment Sodium Potassium Chloride Carbon Dioxide Anion Gap BUN Creatinine Estimated GFR Random Glucose Lactic Acid Calcium Total Bilirubin AST ALT Alkaline Phosphatase Total Protein Albumin Urine Color Yellow Straw Urine Clarity Clear Clear Urine pH 6.0 7.0 Ur Specific [place] 1.008 1.005 Urine Protein Negative Negative Urine Glucose (UA) Negative Negative Urine Ketones Negative Negative Urine Occult Blood Moderate H Small H Urine Nitrate Negative Negative Urine Bilirubin Negative Negative Urine Urobilinogen Less than 2 Less than 2 Ur Leukocyte Esterase Negative Moderate H Urine RBC 2 3 Urine WBC 8 H 9 H Ur Squamous Epith Cells 1 Urine Bacteria Rare H Hyaline Casts 1 Urine Mucus Few H Micro UA Comment Culture not ind Ur Microscopic Review Not Reportable Not Reportable Urine Culture Comments Culture not ind - Imaging Impressions Chest X-Ray 12/30/17 22:42 CONCLUSION: No acute cardiopulmonary abnormality is identified. Venous Doppler Study 12/31/17 00:00 CONCLUSION: 1. The study is negative for upper extremity deep venous thrombosis. Assessment and Plan - Plan Sepsis present on admission History of ESBL UTIs likely recurrent UTI Complicated UTI history of stones status post lithotripsy Recent PICC possible line related bacteremia await blood cultures Rule out PICC line related thrombosis. Recommendations: Recommend restarting ertapenem IV until we have the final cultures. Imaging per urology Urology notes reviewed Patient is significant other/ was in the room and did not let me talk to the patient much. But I gather that this is a recurrent process. Patient's spouse expressed frustration because this is a recurrent process for several months. Explained to him in great detail that if tinnitus of the stone is a source of infection that lithotripsy can sometimes cause recurrent UTI. It would be important to determine if there still any stone remaining or any debris from the lithotripsy can also act as a source of infection. I also explained to him the differential diagnosis of fever in the absence of urinary tract infection which includes DVT or any other infections such as line related bacteremia.
--- NOTE | 2017-12-31 16:05 | CT ---
EXAM DATE: 12/31/2017 3:58 PM EDT AGE/SEX: 37 years / Female INDICATIONS: Left sided abdominal pain. CLINICAL DATA: This is the patient's initial encounter. Patient reports that signs and symptoms have been present for 1 day and indicates a pain score of 2/10. MEDICAL/SURGICAL HISTORY: Renal calculi. section. Nephrostomy, tube left. RADIATION DOSE: 7.93 CTDI (mGy) COMPARISON: [facility] [place] [facility]V [facility], 12/17/2017. . TECHNIQUE: Multiple contiguous axial images were obtained through the abdomen. Images were obtained using multiple row detector helical technique. Using automated exposure control and adjustment of the mA and/or kV according to patient size, radiation dose was kept as low as reasonably achievable to o btain optimal diagnostic quality images. DICOM format image data is available electronically for rev iew and comparison. FINDINGS: Hepatic steatosis. Osseous structures are intact. A percutaneous nephrostomy tube is identified at th e level of the left kidney. Spleen, pancreas, right kidney unremarkable. There is mild hydronephrosis and perinephric stranding on the left. At the lower pole of the left kidney 1.1 cm calcification is noted. Within the left proximal ureter 1.2 cm cephalocaudal dimension calcification identified. This has the appearance of 2-3 calculi. No worrisome osseous lesions. No evidence of bowel obstruction. Th ere is diffuse nodularity of the subcutaneous fat in the gluteal region with high density nodularity seen. There is a history of silicone injections? No evidence of bowel obstruction, free fluid or free air. Uterus and left ovary unremarkable. Right ovarian cyst suspected measuring 3.9 cm. CONCLUSION: 1. Mild left hydronephrosis and nephrolithiasis with left proximal ureteral stones. 2. Ovarian cyst. Electronically signed by: Nghia Mehta MD 12/31/2017 4:03 PM EDT
[2018-01-01] MEDS: Sod Chloride 0.9% Inj 1,000 ML IV.CONT SCH ×3 (00:58→18:07)
[2018-01-01 01:45] LABS: Hepatitits B Surface Antigen Nonreactive (Nonreactive)
[2018-01-01 02:08] LABS: Hepatitis A IgM Antibody Nonreactive (Nonreactive)
[2018-01-01 08:03] LABS: Baso % (Auto) 0.5 % (0.0-2.0); Eos # (Auto) 0.3 th/mm3 (0.0-0.4); Eos % (Auto) 4.3 % (0.0-4.0); Hemoglobin 10.7 gm/dL (11.6-15.3); Lymph # (Auto) 1.4 th/mm3 (1.0-4.8); Mean Corpuscular HGB Conc 33.3 % (32.0-36.0); Mean Corpuscular Hemoglobin 27.3 pg (27.0-34.0); Mean Corpuscular Volume 82.1 fL (80.0-100.0); Mean Platelet Volume 7.8 fL (7.0-11.0); Mono # (Auto) 0.6 th/mm3 (0.0-0.9); Mono % (Auto) 7.8 % (0.0-8.0); Neut # (Auto) 4.9 th/mm3 (1.8-7.7); Neut % (Auto) 68.4 % (16.0-70.0); Platelet Count 255 th/mm3 (150-450); Red Cell Distribution Width 15.5 % (11.6-17.2); White Blood Count 7.1 th/mm3 (4.0-11.0)
[2018-01-01 08:28] LABS: Anion Gap 11 meq/L (5-15); Blood Urea Nitrogen 6 mg/dL (7-18); Calcium 8.2 mg/dL (8.5-10.1); Chloride 107 meq/L (98-107); Glomerular Filtration Rate Greater Than 89 mL/min (>89); Glucose,Random 82 mg/dL (74-106); Potassium 3.8 meq/L (3.5-5.1); Sodium 142 meq/L (136-145)
[2018-01-01] MEDS: Morphine Inj 4 MG/ML Vial IV.PUSH PRN ×2 (09:03→14:01)
[2018-01-01] MEDS: Senna/Docusate Sodium 8.6/50 MG Tablet PO SCH ×2 (09:10→23:10)
--- NOTE | 2018-01-01 14:59 | P.PN ---
Subjective Interval history: Follow-up for urosepsis: Left flank pain improving, no fever overnight, complaining of right ear pain, no chest pain, no shortness of breath. No diarrhea. Tolerating meals well. at bedside with multiple questions. Physical Exam Vital signs: Vital Signs 12/31/17 16:08 12/31/17 20:00 01/01/18 00:00 Temperature 99.1 F 99.3 F 98.0 F Pulse Rate 96 H 85 80 Respiratory Rate 20 19 17 Blood Pressure 122/75 115/70 111/66 Pulse Oximetry 98 86 L 98 01/01/18 04:00 01/01/18 07:58 01/01/18 11:25 Temperature 97.8 F 97.5 F L 97.8 F Pulse Rate 88 84 80 Respiratory Rate 17 18 18 Blood Pressure 118/75 121/65 113/69 Pulse Oximetry 97 99 100 Intake & Output 12/31/17 01/01/18 01/01/18 18:59 06:59 18:59 Intake Total 1720 / 1720 1100 / 1100 900 / 900 Output Total 1800 / 1800 Balance -80 / -80 1100 / 1100 900 / 900 Weight 70.9 kg Intake: IV 1000 / 1000 1100 / 1100 900 / 900 NS Inj 1,000 ML @ 100 mls/hr IV 1000 / 1000 1000 / 1000 900 / 900 .CONT .Q10H PRAFUL Rx#:[id number] INVanz Inj 1,000 MG In NS Inj 100 / 100 100 ML @ 100 mls/hr IV.SIG Q24H PRAFUL Rx#:[id number] Oral 720 / 720 Output: Urine Amount (Stoma) 1800 / 1800 Pre-Hospital: Nephrostomy Tube 1800 / 1800 Left Other: Date of Last Bowel Movement 12/31/17 12/30/17 Narrative: GENERAL: Well-nourished, well-developed patient in no apparent distress. SKIN: Warm and dry. HEAD: Atraumatic. Normocephalic. EYES: Pupils equal and round. No scleral icterus. No injection or drainage. ENT: No nasal bleeding or discharge. Mucous membranes pink and moist. Right tympanic membrane without erythema, no drainage. NECK: Trachea midline. No JVD. CARDIOVASCULAR: Regular rate and rhythm. RESPIRATORY: No accessory muscle use. Clear to auscultation. Breath sounds equal bilaterally. GASTROINTESTINAL: Abdomen soft, non-tender, nondistended. Hepatic and splenic margins not palpable. Left flank with nephrostomy tube in place, clear urine noted. No tenderness on palpation. MUSCULOSKELETAL: Extremities without clubbing, cyanosis, or edema. No obvious deformities. NEUROLOGICAL: Awake and alert. No obvious cranial nerve deficits. Motor grossly within normal limits. Five out of 5 muscle strength in the arms and legs. Normal speech. PSYCHIATRIC: Appropriate mood and affect; insight and judgment normal. Results - Labs CBC & Chem 7: 01/01/18 07:25 01/01/18 07:25 Laboratory Results - last 24 hr 12/31/17 01/01/18 01/01/18 17:37 07:25 07:25 WBC 7.1 RBC 3.90 L Hgb 10.7 L Hct 32.0 L MCV 82.1 MCH 27.3 MCHC 33.3 RDW 15.5 Plt Count 255 MPV 7.8 Neut % (Auto) 68.4 Lymph % (Auto) 19.0 [place] % (Auto) 7.8 Eos % (Auto) 4.3 H Baso % (Auto) 0.5 Neut # (Auto) 4.9 Lymph # (Auto) 1.4 [place] # (Auto) 0.6 Eos # (Auto) 0.3 Baso # (Auto) 0.0 WBC Differential . Differential Comment Auto diff final Sodium 142 Potassium 3.8 Chloride 107 Carbon Dioxide 24.0 Anion Gap 11 BUN 6 L Creatinine 0.65 Estimated GFR Greater than 89 Random Glucose 82 Calcium 8.2 L Hepatitis A IgM Ab Nonreactive Hep Bs Antigen Nonreactive Hep B Core IgM Ab Nonreactive Hep C IgG Ab Nonreactive Microbiology 12/31/17 02:30 Random Urine Urine Culture - Preliminary Pseudomonas species 12/30/17 22:55 Blood - Peripheral Aerobic Blood Culture - Preliminary No growth in 2 days 12/30/17 22:55 Blood - Peripheral Anaerobic Blood Culture - Preliminary No growth in 2 days 12/30/17 22:50 Blood - Peripheral Aerobic Blood Culture - Preliminary No growth in 2 days 12/30/17 22:50 Blood - Peripheral Anaerobic Blood Culture - Preliminary No growth in 2 days - Imaging Impressions Abdomen/Pelvis CT 12/31/17 00:00 CONCLUSION: 1. Mild left hydronephrosis and nephrolithiasis with left proximal ureteral stones. 2. Ovarian cyst. Assessment and Plan - Assessment (1) Sepsis Code(s): A41.9 - Sepsis, unspecified organism Status: Resolved (2) UTI (urinary tract infection) Code(s): N39.0 - Urinary tract infection, site not specified Status: Acute - Plan Assessment/Plan 37-year-old female with past medical history significant for previous ESBL UTI status post nephrostomy tube presents to the emergency department for evaluation of left-sided flank pain and fevers. Fever up to 103. Sepsis, febrile, tachycardia. Status post ESBL UTI -completed 2 weeks of abx. Initial UA clean catch, no obvious signs of infection Afebrile overnight, WBC coming down. -Repeat UA and urine culture from nephrostomy bag, Pseudomonas species. Follow sensitivity -continue ertapenem for now. -ID following, input appreciated. -US right arm-negative. -Continue IV fluids Continue with pain management -replace electrolytes as needed S/p Left PCN placement for stones S/P left ESWL on 12/[address] Serra -Urology following CT abdomen and pelvis results noted, will defer to urology for further recommendations. Right ear pain, headache-examined, no acute findings -Add [place] PRN, Morphine giving her headache. -continue to monitor. Discussed with patient and at length, multiple questions asked and answered. Discussed with RN and case management Overall improving Possible discharge 1-2 days, will obtain final recommendations from ID Further recommendations per urology in regards to left PCN. (1) Sepsis Qualifiers: Sepsis type: sepsis due to unspecified organism Qualified Code(s): A41.9 - Sepsis, unspecified organism (2) UTI (urinary tract infection) Qualifiers: Urinary tract infection type: acute pyelonephritis Qualified Code(s): N10 - Acute pyelonephritis
[2018-01-02] MEDS: Sod Chloride 0.9% Inj 1,000 ML IV.CONT SCH ×2 (04:18→14:48)
[2018-01-02] MEDS: Senna/Docusate Sodium 8.6/50 MG Tablet PO SCH ×2 (09:08→21:14)
--- NOTE | 2018-01-02 11:22 | P.PNIM ---
Subjective Interval history: 37-year-old female with past medical history significant for previous ESBL UTI status post nephrostomy tube presents to the emergency department for evaluation of left-sided flank pain and fevers. The patient reports that she has had fevers, chills and left-sided flank pain for the past several days. She states this feels the same as her previous urinary tract infections. She denies any chest pain or shortness of breath. No abdominal pain. No nausea/ vomiting/diarrhea. Follow-up for urosepsis: c/o left mild flank pain, no fever overnight, feeling poorly, no cp, no sob, completed abx for x 2 weeks and started spiking fevers over weekend up to 103. Pt. is supposed to have f/u CT abd 01/09 and possibly have nephrostomy tube removed. Patient has been at bedside with multiple questions, and concerns about his 's condition. Attempted to answer all. Updated on plan of care 9-6 Follow-up for urosepsis: Left flank pain improving, no fever overnight, complaining of right ear pain, no chest pain, no shortness of breath. No diarrhea. Tolerating meals well. at bedside with multiple questions. 9-7 PSEUDOMONAS IS GROWING IN URINE CURRENTLY DW RN AND PT AND CM CONTINUE ANTIBIOTICS HX OF ESBL UTI HAS LEFT SIDE NEPHROSTOMY TUBE IN PLACE SOME LEFT SIDE FLANK PAIN BUT LESS Physical Exam Vital signs: Vital Signs 01/01/18 11:25 01/01/18 16:00 01/01/18 20:00 Temperature 97.8 F 98.0 F 97.5 F L Pulse Rate 80 64 80 Respiratory Rate 18 17 18 Blood Pressure 113/69 101/63 114/76 Pulse Oximetry 100 98 99 01/02/18 00:00 01/02/18 04:00 01/02/18 08:00 Temperature 97.7 F 97.1 F L 97.7 F Pulse Rate 60 64 60 Respiratory Rate 18 18 17 Blood Pressure 108/58 L 121/72 115/75 Pulse Oximetry 97 98 99 Intake & Output 01/01/18 01/02/18 01/02/18 18:59 06:59 18:59 Intake Total 900 / 900 1820 / 1820 Output Total 300 / 300 Balance 600 / 600 1820 / 1820 Weight 71.7 kg 71.7 kg Intake: IV 900 / 900 1100 / 1100 NS Inj 1,000 ML @ 100 mls/hr IV 900 / 900 1000 / 1000 .CONT .Q10H PR[facility] Rx#:[id number] INVanz Inj 1,000 MG In NS Inj 100 / 100 100 ML @ 100 mls/hr IV.SIG Q24H PR[facility]UL Rx#:[id number] Oral 720 / 720 Output: Urine 300 / 300 Other: # Voids 2 Date of Last Bowel Movement 12/30/17 12/30/17 # Bowel Movements 0 0 Narrative: GENERAL: Well-nourished, well-developed patient in no apparent distress. SKIN: Warm and dry. HEAD: Atraumatic. Normocephalic. EYES: Pupils equal and round. No scleral icterus. No injection or drainage. ENT: No nasal bleeding or discharge. Mucous membranes pink and moist. Right tympanic membrane without erythema, no drainage. NECK: Trachea midline. No JVD. CARDIOVASCULAR: Regular rate and rhythm. RESPIRATORY: No accessory muscle use. Clear to auscultation. Breath sounds equal bilaterally. GASTROINTESTINAL: Abdomen soft, non-tender, nondistended. Hepatic and splenic margins not palpable. Left flank with nephrostomy tube in place, clear urine noted. No tenderness on palpation. MUSCULOSKELETAL: Extremities without clubbing, cyanosis, or edema. No obvious deformities. NEUROLOGICAL: Awake and alert. No obvious cranial nerve deficits. Motor grossly within normal limits. Five out of 5 muscle strength in the arms and legs. Normal speech. PSYCHIATRIC: Appropriate mood and affect; insight and judgment normal. Results - Labs CBC & Chem 7: 01/01/18 07:25 01/01/18 07:25 Microbiology 12/30/17 22:55 Blood - Peripheral Aerobic Blood Culture - Preliminary No growth in 3 days 12/30/17 22:55 Blood - Peripheral Anaerobic Blood Culture - Preliminary No growth in 3 days 12/30/17 22:50 Blood - Peripheral Aerobic Blood Culture - Preliminary No growth in 3 days 12/30/17 22:50 Blood - Peripheral Anaerobic Blood Culture - Preliminary No growth in 3 days 12/31/17 02:30 Random Urine Urine Culture - Preliminary Pseudomonas species - Imaging Chest X-Ray 12/30/17 22:42 CONCLUSION: No acute cardiopulmonary abnormality is identified. Abdomen/Pelvis CT 12/31/17 00:00 CONCLUSION: 1. Mild left hydronephrosis and nephrolithiasis with left proximal ureteral stones. 2. Ovarian cyst. Venous Doppler Study 12/31/17 00:00 CONCLUSION: 1. The study is negative for upper extremity deep venous thrombosis. Assessment and Plan - Assessment (1) Sepsis Code(s): A41.9 - Sepsis, unspecified organism Status: Resolved (2) UTI (urinary tract infection) Code(s): N39.0 - Urinary tract infection, site not specified Status: Acute - Plan 37-year-old female with past medical history significant for previous ESBL UTI status post nephrostomy tube presents to the emergency department for evaluation of left-sided flank pain and fevers. Fever up to 103. Sepsis, febrile, tachycardia. Status post ESBL UTI -completed 2 weeks of abx. Initial UA clean catch, no obvious signs of infection Afebrile overnight, WBC coming down. -Repeat UA and urine culture from nephrostomy bag, Pseudomonas species. Follow sensitivity -continue ertapenem for now. -ID following, input appreciated. -US right arm-negative. -Continue IV fluids Continue with pain management -replace electrolytes as needed UA GROWING PSEUDOMONAS S/p Left PCN placement for stones S/P left ESWL on 12/[address] Serra -Urology following CT abdomen and pelvis results noted, will defer to urology for further recommendations. Right ear pain, headache-examined, no acute findings -Add [place] PRN, Morphine giving her headache. -continue to monitor. Discussed with patient and at length, multiple questions asked and answered. Discussed with RN and case management Overall improving Possible discharge 1-2 days, will obtain final recommendations from ID - PSEUDOMONAS IN URINE Further recommendations per urology in regards to left PCN. Code Status: FULL CODE Discussed Condition With: RN AND CM AND PT Discharge Planning: ONCE CULTURES BACK AND CLEARED BY ID (1) Sepsis Qualifiers: Sepsis type: sepsis due to unspecified organism Qualified Code(s): A41.9 - Sepsis, unspecified organism (2) UTI (urinary tract infection) Qualifiers: Urinary tract infection type: acute pyelonephritis Qualified Code(s): N10 - Acute pyelonephritis
--- NOTE | 2018-01-02 14:35 | P.PNID ---
Subjective Remarks: is a 37-year-old female with past medical history significant for previous ESBL UTIs status post nephrostomy tube placement. Patient reportedly underwent lithotripsy by Dr. Serra recently. Patient had a PICC line in place and was receiving antibiotics until 2-3 days prior to admission. PICC line was removed after completion of antibiotic therapy. Patient now presents to the emergency department for evaluation of fevers and left-sided flank pain. She denies any chest pain or shortness of breath. No abdominal pain. No nausea/vomiting/diarrhea. Infectious diseases consulted for management of recurrent fevers and UTI the patient was recently treated for ESBL UTI. Overnight events reviewed No fevers No rash No diarrhea Was upset earlier and wanted to go home AMA. has convinced her to stay. Antibiotics: Ertapenem IV Lines: Lines ok Past Medical History: reviewed Allergies/Adverse Reactions: Allergies nitrofurantoin Allergy (Verified 12/17/17 13:53) Swelling of Lip/Tongue/Throat Objective Vital Signs 01/01/18 16:00 01/01/18 20:00 01/02/18 00:00 Temperature 98.0 F 97.5 F L 97.7 F Pulse Rate 64 80 60 Respiratory Rate 17 18 18 Blood Pressure 101/63 114/76 108/58 L Pulse Oximetry 98 99 97 01/02/18 04:00 01/02/18 08:00 01/02/18 12:00 Temperature 97.1 F L 97.7 F 98.0 F Pulse Rate 64 60 71 Respiratory Rate 18 17 17 Blood Pressure 121/72 115/75 122/71 Pulse Oximetry 98 99 100 Intake & Output 01/01/18 01/02/18 01/02/18 18:59 06:59 18:59 Intake Total 900 / 900 1820 / 1820 Output Total 300 / 300 Balance 600 / 600 1820 / 1820 Weight 71.7 kg 71.7 kg Intake: IV 900 / 900 1100 / 1100 NS Inj 1,000 ML @ 100 mls/hr IV 900 / 900 1000 / 1000 .CONT .Q10H PRAFUL Rx#:[id number] INVanz Inj 1,000 MG In NS Inj 100 / 100 100 ML @ 100 mls/hr IV.SIG Q24H PRAFUL Rx#:[id number] Oral 720 / 720 Output: Urine 300 / 300 Other: # Voids 2 Date of Last Bowel Movement 12/30/17 12/30/17 # Bowel Movements 0 0 12/30/17 22:55 Blood - Peripheral Aerobic Blood Culture - Preliminary No growth in 3 days 12/30/17 22:55 Blood - Peripheral Anaerobic Blood Culture - Preliminary No growth in 3 days 12/30/17 22:50 Blood - Peripheral Aerobic Blood Culture - Preliminary No growth in 3 days 12/30/17 22:50 Blood - Peripheral Anaerobic Blood Culture - Preliminary No growth in 3 days 12/31/17 02:30 Random Urine Urine Culture - Preliminary Pseudomonas species Lab - Hematology Results 01/01/18 07:25 WBC 7.1 RBC 3.90 L Hgb 10.7 L Hct 32.0 L MCV 82.1 MCH 27.3 MCHC 33.3 RDW 15.5 Plt Count 255 MPV 7.8 Neut % (Auto) 68.4 Lymph % (Auto) 19.0 [place] % (Auto) 7.8 Eos % (Auto) 4.3 H Baso % (Auto) 0.5 Neut # (Auto) 4.9 Lymph # (Auto) 1.4 [place] # (Auto) 0.6 Eos # (Auto) 0.3 Baso # (Auto) 0.0 WBC Differential . Differential Comment Auto diff final Lab - Chemistry Results 01/01/18 07:25 Sodium 142 Potassium 3.8 Chloride 107 Carbon Dioxide 24.0 Anion Gap 11 BUN 6 L Creatinine 0.65 Estimated GFR Greater than 89 Random Glucose 82 Calcium 8.2 L Imaging: ITS Impressions Chest X-Ray 12/30/17 22:42 CONCLUSION: No acute cardiopulmonary abnormality is identified. Abdomen/Pelvis CT 12/31/17 00:00 CONCLUSION: 1. Mild left hydronephrosis and nephrolithiasis with left proximal ureteral stones. 2. Ovarian cyst. Venous Doppler Study 12/31/17 00:00 CONCLUSION: 1. The study is negative for upper extremity deep venous thrombosis. Physical Exam: GENERAL: Well-nourished well-developed, not in acute distress SKIN: Cool and dry, no generalized rash HEAD: Atraumatic. Normocephalic. No temporal or scalp tenderness. EYES: Pupils equal round and reactive. Scleral icterus. No injection or drainage. No petechia ENT: Nothing abnormal detected NECK: Trachea midline. Supple, nontender, no meningeal signs. CARDIOVASCULAR: HS audible. RESPIRATORY: Clear to auscultation bilaterally. GASTROINTESTINAL: Abdomen soft nontender. MUSCULOSKELETAL: Extremities without clubbing, cyanosis. NEUROLOGICAL: Alert oriented 3. Nonfocal. Psych cooperative IV line sites ok. Assessment and Plan - Plan Sepsis present on admission History of ESBL UTIs likely recurrent UTI Complicated UTI history of stones status post lithotripsy Recent PICC possible line related bacteremia await blood cultures Rule out PICC line related thrombosis. Recommendations: DC ertapenem IV as PSAE not covered. Clinically fevers resolved with Ertapenem IV Start Meropenem IV. Urology notes reviewed Follow cultures Follow clinical course. Ari Vargas. ari patient and spouse all questions answered to their satisfaction. covering for me this weekend and available prn.
[2018-01-02] MEDS: Morphine Inj 4 MG/ML Vial IV.PUSH PRN ×2 (14:42→21:44)
[2018-01-02] MEDS ORDERED: ASP: Path resistant to other antimicrobials, culture proven OTHER PRN (19:23)
[2018-01-02] MEDS: Meropenem Inj 1,000 MG in Sodium Chlor 0.9% Inj 100 ML IV.SIG SCH (22:08)
[2018-01-03] MEDS: Meropenem Inj 1,000 MG in Sodium Chlor 0.9% Inj 100 ML IV.SIG SCH (06:06)
[2018-01-03] MEDS: Sod Chloride 0.9% Inj 1,000 ML IV.SIG SCH ×3 (06:06→10:05)
[2018-01-03] MEDS: Sod Chloride 0.9% Inj 1,000 ML IV.CONT SCH ×2 (06:10→11:48)
[2018-01-03] MEDS: Senna/Docusate Sodium 8.6/50 MG Tablet PO SCH (08:40)
[2018-01-03 09:17] LABS: Baso % (Auto) 0.8 % (0.0-2.0); Eos # (Auto) 0.3 th/mm3 (0.0-0.4); Eos % (Auto) 6.3 % (0.0-4.0); Hematocrit 34.1 % (35.0-46.0); Hemoglobin 11.2 gm/dL (11.6-15.3); Lymph # (Auto) 1.6 th/mm3 (1.0-4.8); Lymph % (Auto) 34.8 % (9.0-44.0); Mean Corpuscular HGB Conc 32.8 % (32.0-36.0); Mean Corpuscular Hemoglobin 27.1 pg (27.0-34.0); Mean Corpuscular Volume 82.4 fL (80.0-100.0); Mean Platelet Volume 7.7 fL (7.0-11.0); Mono # (Auto) 0.3 th/mm3 (0.0-0.9); Mono % (Auto) 6.7 % (0.0-8.0); Neut # (Auto) 2.4 th/mm3 (1.8-7.7); Neut % (Auto) 51.4 % (16.0-70.0); Platelet Count 298 th/mm3 (150-450); Red Blood Count 4.14 mil/mm3 (4.00-5.30); Red Cell Distribution Width 15.1 % (11.6-17.2); White Blood Count 4.6 th/mm3 (4.0-11.0)
[2018-01-03 09:41] LABS: Albumin 2.9 g/dL (3.4-5.0); Anion Gap 11 meq/L (5-15); Aspartate Aminotransferase 16 U/L (15-37); Blood Urea Nitrogen 14 mg/dL (7-18); Calcium 8.1 mg/dL (8.5-10.1); Carbon Dioxide 21.7 meq/L (21.0-32.0); Chloride 107 meq/L (98-107); Glomerular Filtration Rate Greater Than 89 mL/min (>89); Glucose,Random 73 mg/dL (74-106); Magnesium 2.1 mg/dL (1.5-2.5); Potassium 3.7 meq/L (3.5-5.1); Sodium 140 meq/L (136-145)
[2018-01-03 09:43] LABS: Alanine Aminotransferase 30 U/L (10-53)
[2018-01-03 09:53] LABS: Alkaline Phosphatase 66 U/L (45-117); Phosphorus 3.4 mg/dL (2.5-4.9)
--- NOTE | 2018-01-03 10:23 | P.PNIM ---
Subjective Interval history: 37-year-old female with past medical history significant for previous ESBL UTI status post nephrostomy tube presents to the emergency department for evaluation of left-sided flank pain and fevers. The patient reports that she has had fevers, chills and left-sided flank pain for the past several days. She states this feels the same as her previous urinary tract infections. She denies any chest pain or shortness of breath. No abdominal pain. No nausea/ vomiting/diarrhea. Follow-up for urosepsis: c/o left mild flank pain, no fever overnight, feeling poorly, no cp, no sob, completed abx for x 2 weeks and started spiking fevers over weekend up to 103. Pt. is supposed to have f/u CT abd 01/09 and possibly have nephrostomy tube removed. Patient has been at bedside with multiple questions, and concerns about his 's condition. Attempted to answer all. Updated on plan of care 9-6 Follow-up for urosepsis: Left flank pain improving, no fever overnight, complaining of right ear pain, no chest pain, no shortness of breath. No diarrhea. Tolerating meals well. at bedside with multiple questions. 9-7 PSEUDOMONAS IS GROWING IN URINE CURRENTLY DW RN AND PT AND CM CONTINUE ANTIBIOTICS HX OF ESBL UTI HAS LEFT SIDE NEPHROSTOMY TUBE IN PLACE SOME LEFT SIDE FLANK PAIN BUT LESS 9-8 cultures came back pain positive for Pseudomonas will discontinue IV antibiotics and switch to p.o. Cipro and patient can be discharged with 14 days of treatment per infectious disease To follow-up with Dr. Sandoval Follow-up with urology Follow-up with PCP Discharge to home today Physical Exam Vital signs: Vital Signs 01/02/18 12:00 01/02/18 16:00 01/02/18 20:00 Temperature 98.0 F 97.7 F 97.2 F L Pulse Rate 71 76 70 Respiratory Rate 17 17 20 Blood Pressure 122/71 124/75 122/76 Pulse Oximetry 100 100 97 01/03/18 00:00 Temperature 97.7 F Pulse Rate 66 Respiratory Rate 18 Blood Pressure 102/52 L Pulse Oximetry 98 Intake & Output 01/02/18 01/03/18 01/03/18 18:59 06:59 18:59 Intake Total 2680 / 2680 1999 Balance 2680 / 2680 1999 Weight 71.7 kg Intake: IV 2200 / 2200 1999 NS Inj 1,000 ML @ 100 mls/hr IV 1000 / 1000 .CONT .Q10H PRAFUL Rx#:[id number] Merrem Inj 1,000 MG In NS Inj 200 / 200 100 ML @ 200 mls/hr IV.SIG Q8H PRAFUL Rx#:[id number] NS Inj 1,000 ML @ Wide Open IV. 1000 / 1000 1999 SIG .Q0M PRAFUL Rx#:[id number] Oral 480 / 480 Other: # Voids 2 Date of Last Bowel Movement 01/03/18 Narrative: GENERAL: Well-nourished, well-developed patient in no apparent distress. SKIN: Warm and dry. HEAD: Atraumatic. Normocephalic. EYES: Pupils equal and round. No scleral icterus. No injection or drainage. ENT: No nasal bleeding or discharge. Mucous membranes pink and moist. Right tympanic membrane without erythema, no drainage. NECK: Trachea midline. No JVD. CARDIOVASCULAR: Regular rate and rhythm. RESPIRATORY: No accessory muscle use. Clear to auscultation. Breath sounds equal bilaterally. GASTROINTESTINAL: Abdomen soft, non-tender, nondistended. Hepatic and splenic margins not palpable. Left flank with nephrostomy tube in place, clear urine noted. No tenderness on palpation. MUSCULOSKELETAL: Extremities without clubbing, cyanosis, or edema. No obvious deformities. NEUROLOGICAL: Awake and alert. No obvious cranial nerve deficits. Motor grossly within normal limits. Five out of 5 muscle strength in the arms and legs. Normal speech. PSYCHIATRIC: Appropriate mood and affect; insight and judgment normal. Results - Labs CBC & Chem 7: 01/03/18 07:41 01/03/18 07:34 Laboratory Results - last 24 hr 01/03/18 01/03/18 01/03/18 07:34 07:34 07:41 WBC 4.6 RBC 4.14 Hgb 11.2 L Hct 34.1 L MCV 82.4 MCH 27.1 MCHC 32.8 RDW 15.1 Plt Count 298 MPV 7.7 Neut % (Auto) 51.4 Lymph % (Auto) 34.8 [place] % (Auto) 6.7 Eos % (Auto) 6.3 H Baso % (Auto) 0.8 Neut # (Auto) 2.4 Lymph # (Auto) 1.6 [place] # (Auto) 0.3 Eos # (Auto) 0.3 Baso # (Auto) 0.0 WBC Differential . Differential Comment Auto diff final Sodium 140 Potassium 3.7 Chloride 107 Carbon Dioxide 21.7 Anion Gap 11 BUN 14 Creatinine 0.72 Estimated GFR Greater than 89 Random Glucose 73 L Calcium 8.1 L Phosphorus 3.4 Magnesium 2.1 Total Bilirubin 0.1 L AST 16 ALT 30 Alkaline Phosphatase 66 Total Protein 7.0 D Albumin 2.9 L TSH 2.770 Free T4 0.93 Microbiology 12/31/17 02:30 Random Urine Urine Culture - Final Pseudomonas aeruginosa 12/30/17 22:55 Blood - Peripheral Aerobic Blood Culture - Preliminary No growth in 3 days 12/30/17 22:55 Blood - Peripheral Anaerobic Blood Culture - Preliminary No growth in 3 days 12/30/17 22:50 Blood - Peripheral Aerobic Blood Culture - Preliminary No growth in 3 days 12/30/17 22:50 Blood - Peripheral Anaerobic Blood Culture - Preliminary No growth in 3 days - Imaging Chest X-Ray 12/30/17 22:42 CONCLUSION: No acute cardiopulmonary abnormality is identified. Abdomen/Pelvis CT 12/31/17 00:00 CONCLUSION: 1. Mild left hydronephrosis and nephrolithiasis with left proximal ureteral stones. 2. Ovarian cyst. Venous Doppler Study 12/31/17 00:00 CONCLUSION: 1. The study is negative for upper extremity deep venous thrombosis. - Procedures NONE Assessment and Plan - Assessment (1) Sepsis Code(s): A41.9 - Sepsis, unspecified organism Status: Resolved (2) UTI (urinary tract infection) Code(s): N39.0 - Urinary tract infection, site not specified Status: Acute - Plan 37-year-old female with past medical history significant for previous ESBL UTI status post nephrostomy tube presents to the emergency department for evaluation of left-sided flank pain and fevers. Fever up to 103. Sepsis, febrile, tachycardia. Status post ESBL UTI -completed 2 weeks of abx. Initial UA clean catch, no obvious signs of infection Afebrile overnight, WBC coming down. -Repeat UA and urine culture from nephrostomy bag, Pseudomonas species. Follow sensitivity -continue ertapenem for now. -ID following, input appreciated. -US right arm-negative. -Continue IV fluids Continue with pain management -replace electrolytes as needed UA GROWING PSEUDOMONAS--pansensitive will DC to home today on p.o. Cipro Follow-up with Dr. Pratibha Sandoval S/p Left PCN placement for stones S/P left ESWL on 12/[address] Serra -Urology following CT abdomen and pelvis results noted, will defer to urology for further recommendations. Right ear pain, headache-examined, no acute findings -Add Martin PRN, Morphine giving her headache. -continue to monitor. Discussed with patient and at length, multiple questions asked and answered. Discussed with RN and case management Overall improving Possible discharge 1-2 days, will obtain final recommendations from ID - PSEUDOMONAS IN URINE Further recommendations per urology in regards to left PCN. Follow-up with urology and primary care physician as well as Dr. Pratibha Sandoval of infectious disease DC to home today Code Status: Full code Discussed Condition With: Discussed with patient and RN and case management and infectious disease Discharge Planning: DC to home today on p.o. Cipro (1) Sepsis Qualifiers: Sepsis type: sepsis due to unspecified organism Qualified Code(s): A41.9 - Sepsis, unspecified organism (2) UTI (urinary tract infection) Qualifiers: Urinary tract infection type: acute pyelonephritis Qualified Code(s): N10 - Acute pyelonephritis
[2018-01-03] MEDS ORDERED: Ciprofloxacin 500 MG Tablet PO SCH (10:30)
--- NOTE | 2018-01-03 10:30 | P.DS ---
Date of admission: 12/31/17 15:28 Primary care physician: No Primary Care Physician Attending physician on discharge: Jamal Smith Anticipated date of discharge: 01/03/18 Brief History from admission: 37-year-old female with past medical history significant for previous ESBL UTI status post nephrostomy tube presents to the emergency department for evaluation of left-sided flank pain and fevers. The patient reports that she has had fevers, chills and left-sided flank pain for the past several days. She states this feels the same as her previous urinary tract infections. She denies any chest pain or shortness of breath. No abdominal pain. No nausea/ vomiting/diarrhea. Patient update on day of discharge: 37-year-old female with past medical history significant for previous ESBL UTI status post nephrostomy tube presents to the emergency department for evaluation of left-sided flank pain and fevers. The patient reports that she has had fevers, chills and left-sided flank pain for the past several days. She states this feels the same as her previous urinary tract infections. She denies any chest pain or shortness of breath. No abdominal pain. No nausea/ vomiting/diarrhea. Follow-up for urosepsis: c/o left mild flank pain, no fever overnight, feeling poorly, no cp, no sob, completed abx for x 2 weeks and started spiking fevers over weekend up to 103. Pt. is supposed to have f/u CT abd 01/09 and possibly have nephrostomy tube removed. Patient has been at bedside with multiple questions, and concerns about his 's condition. Attempted to answer all. Updated on plan of care 9-6 Follow-up for urosepsis: Left flank pain improving, no fever overnight, complaining of right ear pain, no chest pain, no shortness of breath. No diarrhea. Tolerating meals well. at bedside with multiple questions. 9-7 PSEUDOMONAS IS GROWING IN URINE CURRENTLY DW RN AND PT AND CM CONTINUE ANTIBIOTICS HX OF ESBL UTI HAS LEFT SIDE NEPHROSTOMY TUBE IN PLACE SOME LEFT SIDE FLANK PAIN BUT LESS 9-8 cultures came back pain positive for Pseudomonas will discontinue IV antibiotics and switch to p.o. Cipro and patient can be discharged with 14 days of treatment per infectious disease To follow-up with Dr. Sandoval Follow-up with urology Follow-up with PCP Discharge to home today DS: Diagnosis - Discharge Diagnosis (1) Sepsis Status: Resolved (2) UTI (urinary tract infection) Status: Acute (3) Pyelonephritis Status: Acute (4) Kidney stone on left side Status: Chronic DS: Medications - Discharge Medications Prescriptions: ciprofloxacin HCl 500 mg PO Q12HR #28 tab hydrocodone-acetaminophen 1 tab PO Q4H PRN #12 tab PRN Reason: Pain DS: Summary Hospital Course: 37-year-old female with past medical history significant for previous ESBL UTI status post nephrostomy tube presents to the emergency department for evaluation of left-sided flank pain and fevers. The patient reports that she has had fevers, chills and left-sided flank pain for the past several days. She states this feels the same as her previous urinary tract infections. She denies any chest pain or shortness of breath. No abdominal pain. No nausea/ vomiting/diarrhea. Follow-up for urosepsis: c/o left mild flank pain, no fever overnight, feeling poorly, no cp, no sob, completed abx for x 2 weeks and started spiking fevers over weekend up to 103. Pt. is supposed to have f/u CT abd 01/09 and possibly have nephrostomy tube removed. Patient has been at bedside with multiple questions, and concerns about his 's condition. Attempted to answer all. Updated on plan of care 9-6 Follow-up for urosepsis: Left flank pain improving, no fever overnight, complaining of right ear pain, no chest pain, no shortness of breath. No diarrhea. Tolerating meals well. at bedside with multiple questions. 9-7 PSEUDOMONAS IS GROWING IN URINE CURRENTLY DW RN AND PT AND CM CONTINUE ANTIBIOTICS HX OF ESBL UTI HAS LEFT SIDE NEPHROSTOMY TUBE IN PLACE SOME LEFT SIDE FLANK PAIN BUT LESS 9-8 cultures came back pain positive for Pseudomonas will discontinue IV antibiotics and switch to p.o. Cipro and patient can be discharged with 14 days of treatment per infectious disease To follow-up with Dr. Sandoval Follow-up with urology Follow-up with PCP Discharge to home today - Time Spent with Patient Total time spent providing and/or coordinating discharge services: Less than 30 minutes - Quality: VTE Deep Vein Thrombosis/Pulmonary Embolism Present on Admission: No Exam Vital signs: Vital Signs 01/02/18 12:00 01/02/18 16:00 01/02/18 20:00 Temperature 98.0 F 97.7 F 97.2 F L Pulse Rate 71 76 70 Respiratory Rate 17 17 20 Blood Pressure 122/71 124/75 122/76 Pulse Oximetry 100 100 97 01/03/18 00:00 Temperature 97.7 F Pulse Rate 66 Respiratory Rate 18 Blood Pressure 102/52 L Pulse Oximetry 98 Intake & Output 01/02/18 01/03/18 01/03/18 18:59 06:59 18:59 Intake Total 2680 / 2680 1999 Balance 2680 / 2680 1999 Weight 71.7 kg Intake: IV 2200 / 2200 1999 NS Inj 1,000 ML @ 100 mls/hr IV 1000 / 1000 .CONT .Q10H PRAFUL Rx#:[id number] Merrem Inj 1,000 MG In NS Inj 200 / 200 100 ML @ 200 mls/hr IV.SIG Q8H PRAFUL Rx#:[id number] NS Inj 1,000 ML @ Wide Open IV. 1000 / 1000 1999 SIG .Q0M PRAFUL Rx#:[id number] Oral 480 / 480 Other: # Voids 2 Date of Last Bowel Movement 01/03/18 Narrative: GENERAL: Well-nourished, well-developed patient in no apparent distress. SKIN: Warm and dry. HEAD: Atraumatic. Normocephalic. EYES: Pupils equal and round. No scleral icterus. No injection or drainage. ENT: No nasal bleeding or discharge. Mucous membranes pink and moist. Right tympanic membrane without erythema, no drainage. NECK: Trachea midline. No JVD. CARDIOVASCULAR: Regular rate and rhythm. RESPIRATORY: No accessory muscle use. Clear to auscultation. Breath sounds equal bilaterally. GASTROINTESTINAL: Abdomen soft, non-tender, nondistended. Hepatic and splenic margins not palpable. Left flank with nephrostomy tube in place, clear urine noted. No tenderness on palpation. MUSCULOSKELETAL: Extremities without clubbing, cyanosis, or edema. No obvious deformities. NEUROLOGICAL: Awake and alert. No obvious cranial nerve deficits. Motor grossly within normal limits. Five out of 5 muscle strength in the arms and legs. Normal speech. PSYCHIATRIC: Appropriate mood and affect; insight and judgment normal. Results Procedures completed during hospitalization: NONE Completed studies during hospitalization: Laboratory Results WBC 4.6 th/mm3 (4.0-11.0) 01/03/18 07:41 RBC 4.14 mil/mm3 (4.00-5.30) 01/03/18 07:41 Hgb 11.2 gm/dL (11.6-15.3) L 01/03/18 07:41 Hct 34.1 % (35.0-46.0) L 01/03/18 07:41 MCV 82.4 fL (80.0-100.0) 01/03/18 07:41 MCH 27.1 pg (27.0-34.0) 01/03/18 07:41 MCHC 32.8 % (32.0-36.0) 01/03/18 07:41 RDW 15.1 % (11.6-17.2) 01/03/18 07:41 Plt Count 298 th/mm3 (150-450) 01/03/18 07:41 MPV 7.7 fL (7.0-11.0) 01/03/18 07:41 Neut % (Auto) 51.4 % (16.0-70.0) 01/03/18 07:41 Lymph % (Auto) 34.8 % (9.0-44.0) 01/03/18 07:41 [place] % (Auto) 6.7 % (0.0-8.0) 01/03/18 07:41 Eos % (Auto) 6.3 % (0.0-4.0) H 01/03/18 07:41 Baso % (Auto) 0.8 % (0.0-2.0) 01/03/18 07:41 Neut # (Auto) 2.4 th/mm3 (1.8-7.7) 01/03/18 07:41 Lymph # (Auto) 1.6 th/mm3 (1.0-4.8) 01/03/18 07:41 [place] # (Auto) 0.3 th/mm3 (0.0-0.9) 01/03/18 07:41 Eos # (Auto) 0.3 th/mm3 (0.0-0.4) 01/03/18 07:41 Baso # (Auto) 0.0 th/mm3 (0.0-0.2) 01/03/18 07:41 WBC Differential . 01/03/18 07:41 Differential Comment Auto diff final 01/03/18 07:41 Sodium 140 meq/L (136-145) 01/03/18 07:34 Potassium 3.7 meq/L (3.5-5.1) 01/03/18 07:34 Chloride 107 meq/L (98-107) 01/03/18 07:34 Carbon Dioxide 21.7 meq/L (21.0-32.0) 01/03/18 07:34 Anion Gap 11 meq/L (5-15) 01/03/18 07:34 BUN 14 mg/dL (7-18) 01/03/18 07:34 Creatinine 0.72 mg/dL (0.50-1.00) 01/03/18 07:34 Estimated GFR Greater than 89 mL/min (>89) 01/03/18 07:34 Random Glucose 73 mg/dL (74-106) L 01/03/18 07:34 Lactic Acid 1.0 mmol/L (0.4-2.0) 12/30/17 22:55 Calcium 8.1 mg/dL (8.5-10.1) L 01/03/18 07:34 Phosphorus 3.4 mg/dL (2.5-4.9) 01/03/18 07:34 Magnesium 2.1 mg/dL (1.5-2.5) 01/03/18 07:34 Total Bilirubin 0.1 mg/dL (0.2-1.0) L 01/03/18 07:34 AST 16 U/L (15-37) 01/03/18 07:34 ALT 30 U/L (10-53) 01/03/18 07:34 Alkaline Phosphatase 66 U/L (45-117) 01/03/18 07:34 Total Protein 7.0 g/dL (6.4-8.2) D 01/03/18 07:34 Albumin 2.9 g/dL (3.4-5.0) L 01/03/18 07:34 TSH 2.770 uIU/mL (0.358-3.740) 01/03/18 07:34 Free T4 0.93 ng/dL (0.76-1.46) 01/03/18 07:34 Urine Color Straw (Yellw/Straw) 12/31/17 02:30 Urine Clarity Clear (Clear) 12/31/17 02:30 Urine pH 7.0 (5.0-8.5) 12/31/17 02:30 Ur Specific [place] 1.005 (1.002-1.035) 12/31/17 02:30 Urine Protein Negative mg/dL (Neg-Trace) 12/31/17 02:30 Urine Glucose (UA) Negative mg/dL (Negative) 12/31/17 02:30 Urine Ketones Negative mg/dL (Negative) 12/31/17 02:30 Urine Occult Blood Small (Negative) H 12/31/17 02:30 Urine Nitrate Negative (Negative) 12/31/17 02:30 Urine Bilirubin Negative (Negative) 12/31/17 02:30 Urine Urobilinogen Less than 2 mg/dL (Less than 2) 12/31/17 02:30 Ur Leukocyte Esterase Moderate (Negative) H 12/31/17 02:30 Urine RBC 3 /hpf (0-3) 12/31/17 02:30 Urine WBC 9 /hpf (0-5) H 12/31/17 02:30 Ur Squamous Epith Cells 1 /hpf (0-5) 12/30/17 23:00 Urine Bacteria Rare /hpf (None) H 12/31/17 02:30 Hyaline Casts 1 /lpf (0-3) 12/31/17 02:30 Urine Mucus Few /lpf (Occasional) H 12/30/17 23:00 Micro UA Comment Culture not ind 12/30/17 23:00 Ur Microscopic Review Not Reportable 12/31/17 02:30 Urine Culture Comments Culture not ind 12/30/17 23:00 Hepatitis A IgM Ab Nonreactive (Nonreactive) 12/31/17 17:37 Hep Bs Antigen Nonreactive (Nonreactive) 12/31/17 17:37 Hep B Core IgM Ab Nonreactive (Nonreactive) 12/31/17 17:37 Hep C IgG Ab Nonreactive (Nonreactive) 12/31/17 17:37 Impressions Chest X-Ray 12/30/17 22:42 CONCLUSION: No acute cardiopulmonary abnormality is identified. Abdomen/Pelvis CT 12/31/17 00:00 CONCLUSION: 1. Mild left hydronephrosis and nephrolithiasis with left proximal ureteral stones. 2. Ovarian cyst. Venous Doppler Study 12/31/17 00:00 CONCLUSION: 1. The study is negative for upper extremity deep venous thrombosis. Labs on day of discharge: Labs from last 24 hours 01/03/18 01/03/18 01/03/18 07:41 07:41 07:34 WBC 4.6 RBC 4.14 Hgb 11.2 L Hct 34.1 L MCV 82.4 MCH 27.1 MCHC 32.8 RDW 15.1 Plt Count 298 MPV 7.7 Neut % (Auto) 51.4 Lymph % (Auto) 34.8 [place] % (Auto) 6.7 Eos % (Auto) 6.3 H Baso % (Auto) 0.8 Neut # (Auto) 2.4 Lymph # (Auto) 1.6 [place] # (Auto) 0.3 Eos # (Auto) 0.3 Baso # (Auto) 0.0 WBC Differential . Differential Comment Auto diff final Sodium 140 Potassium 3.7 Chloride 107 Carbon Dioxide 21.7 Anion Gap 11 BUN 14 Creatinine 0.72 Estimated GFR Greater than 89 Random Glucose 73 L Hemoglobin A1c Pending Calcium 8.1 L Phosphorus 3.4 Magnesium 2.1 Total Bilirubin 0.1 L AST 16 ALT 30 Alkaline Phosphatase 66 Total Protein 7.0 D Albumin 2.9 L TSH 2.770 Free T4 01/03/18 07:34 WBC RBC Hgb Hct MCV MCH MCHC RDW Plt Count MPV Neut % (Auto) Lymph % (Auto) [place] % (Auto) Eos % (Auto) Baso % (Auto) Neut # (Auto) Lymph # (Auto) [place] # (Auto) Eos # (Auto) Baso # (Auto) WBC Differential Differential Comment Sodium Potassium Chloride Carbon Dioxide Anion Gap BUN Creatinine Estimated GFR Random Glucose Hemoglobin A1c Calcium Phosphorus Magnesium Total Bilirubin AST ALT Alkaline Phosphatase Total Protein Albumin TSH Free T4 0.93 Preliminary micro results at discharge 12/30/17 22:55 Aerobic Blood Culture - Preliminary Blood - Peripheral No growth in 3 days Anaerobic Blood Culture - Preliminary No growth in 3 days 12/30/17 22:50 Aerobic Blood Culture - Preliminary Blood - Peripheral No growth in 3 days Anaerobic Blood Culture - Preliminary No growth in 3 days - Impressions ITS Impressions Chest X-Ray 12/30/17 22:42 CONCLUSION: No acute cardiopulmonary abnormality is identified. Abdomen/Pelvis CT 12/31/17 00:00 CONCLUSION: 1. Mild left hydronephrosis and nephrolithiasis with left proximal ureteral stones. 2. Ovarian cyst. Venous Doppler Study 12/31/17 00:00 CONCLUSION: 1. The study is negative for upper extremity deep venous thrombosis. Discharge Plan - Discharge Disposition Patient Disposition: 01 Discharge Home - Discharge Condition Condition: Good - Discharge Order Discharge Orders: Discharge Order (Routine); Ordered 01/03/18 Ordered By: Jamal Smith - Discharge Details Anticipated Discharge Date: 01/03/18 Discharge Comment: dc to home - Physicians Team Primary Care Provider: Primary Care Elvini,No Attending Provider: Jamal Smith Other Providers: Spotsetter,Insurance ; Lis Sweeney MD ; Kareem Weir MD
[2018-01-03 13:40] LABS: Hemoglobin A1c 5.3 % (4.3-6.0)
== END 2018-01-03 15:50 | disposition home or self-care (01) ==
LOC: NEDA 21:28 → NEPC 21:28 → NEPFCDU 12-31 04:34 → N04 01-01 13:45
PROVIDERS: ADMIT Hospitalist; ATTEND Hospitalist